=== PATIENT | female | born 1940 | race Caucasian/White ===

== ENCOUNTER 2017-03-14 18:08 | Inpatient (IN) ==
[2017-03-14] MEDS ORDERED: SODIUM CHLORIDE 0.9% 500 ML IV STA (18:55)
--- NOTE | 2017-03-14 19:28 | XRay Report ---
XR chest 1V portable Indication: Altered mental status. Comparison: Chest x-ray 12/16/2015. Technique: Portable AP chest was performed. Findings: Heart size is normal. Pulmonary vasculature appears within normal limits. No significant abnormality of the mediastinal contours demonstrated. Multiple punctate calcifications compatible with granuloma are noted within the mid and lower right lung and mid left lung. These appear stable in size and number. Lungs are otherwise clear. Bones and soft tissues demonstrate no significant abnormalities. Impression: 1. No evidence of acute pathology. 03/14/2017 7:22 PM PROCEDURE INTERPRETED AT [facility] DEPARTMENT OF RADIOLOGY Final Report Signed by: Dr. Cedric Horton
[2017-03-14 19:36] LABS: Basophils % 0.5 % (0.0-0.8); Hematocrit 36.6 VOL% (35.7-47.0); Hemoglobin 12.2 GM/DL (12.0-16.0); Immature Granulocytes % 0.5 %; Immature Granulocytes Absolute 0.03 #; Lymphocytes # 1.5 10*3/uL (1.4-4.0); Lymphocytes % 25.7 % (21.3-54.2); Mean Corpuscular HGB Conc 33.3 GM/DL (32-36); Mean Corpuscular Hemoglobin 28 PG (27-34); Mean Corpuscular Volume 83.9 FL (87-102); Mean Platelet Volume 10.8 FL (9.6-12.0); Monocytes # 0.3 10*3/uL (0.11-0.8); Monocytes % 5.5 % (1.7-12.7); Neutrophils % 67.8 % (38.7-73.9); Platelet Count 231 T/CUMM (130-400); Red Blood Count 4.36 MC/CUMM (3.8-5.5); Red Cell Distribution Width 15.6 % (9.3-17.3)
[2017-03-14 19:54] LABS: PT Patient Result 10.7 SECS
[2017-03-14 20:06] LABS: Alanine Aminotransferase 39 U/L (13-56); Alkaline Phosphatase 64 U/L (45-117); Aspartate Amino Transferase 76 U/L (0-37); Bilirubin,Total < 0.39 MG/DL (0.2-1.0); Blood Urea Nitrogen 20 MG/DL (7-18); Calcium 10.6 MG/DL (8.5-10.1); Glucose 94 MG/DL (74-106); Magnesium 1.5 MG/DL (1.8-2.4); Osmolality,Calculated 264.7 MOS/KG (273-304); Potassium 4.2 MMOL/L (3.5-5.1); Sodium 131 MMOL/L (136-145); Troponin I Only 0.016 NG/ML (0.00-0.045)
[2017-03-14] MEDS ORDERED: MAGNESIUM SULF RIDER 2 GM in PREMIX 1 EACH IV STA (20:37)
--- NOTE | 2017-03-14 20:38 | Emergency Department Note ---
Kristel Bentley Rolonda, am scribing for, and in the presence of, Derek Davis MD 18:55. Ryan Bentley Charles R, MD, personally performed the services described in this documentation, ascribed by Aime Humphries in my presence, and it is both accurate and complete . Arrival - Arrival Chief Complaint: Weakness Stated Complaint: weak, not eating are drinking and mental ED Nursing Triage Note: family states that pt has been weaker every day. pt has increased confusion. Mode of Arrival: Wheelchair Limitations: Altered Mental Status Source: Family (daughters), Old Records Reviewed, RN Notes Reviewed - History of Present Illness HPI Narrative: Pt is a 76 y/o female who was brought to the ED for further evaluation of weakness with an onset of days. Pt has a PMHx of cardiovascular, psychological, and neurology problems. Family states that pt is getting weaker and weaker. They state that pt has dementia but it has progressively worsened over the past few days. Family states that pt is usual able to walk but not is immobile, has no appetite, and sleeps more than usual. They states that when pt was mobile, she would fall 2-3x times a week and that she was Dx with a stress fracture last week. Pt is f/u by Dr. Robertson. No other complaint/pain in ED. Onset (ago): day(s) Consistency: constant Severity: moderate, severe Severity scale (1-10): 6 Allergies/Adverse Reactions: Allergies Allergy/AdvReac Type Severity Reaction Status Date / Time levofloxacin Allergy Mild Unknown/Unable Verified 12/17/15 17:01 to obtain Home Medications: Home Medications Medication Instructions Recorded Confirmed Type Aspirin [Ecotrin] 325 mg PO QAM 06/03/15 03/14/17 History Clopidogrel [Plavix] 75 mg PO QAM 06/03/15 03/14/17 History Metoprolol Succinate 50 mg PO QAM 06/03/15 03/14/17 History amLODIPine [Norvasc] 2.5 mg PO QAM 06/03/15 03/14/17 History Colesevelam [Welchol] 625 mg PO QAM 07/04/15 03/14/17 History QUEtiapine [SEROquel] 50 mg PO BEDTIME #60 tablet 09/04/15 03/14/17 Rx Isosorbide Mononitrate [Imdur] 60 mg PO QAM 12/16/15 03/14/17 History Levothyroxine Tab [Synthroid Tab] 25 mcg PO QAM 12/16/15 03/14/17 History Lovastatin [Mevacor] 40 mg PO BID W/MEALS 12/16/15 03/14/17 History Magnesium Chloride [Slow Mag] 64 mg PO QAM 12/16/15 03/14/17 History Pioglitazone HCl [Actos] 30 mg PO QAM 12/16/15 03/14/17 History Potassium Chloride Cap/Tab [K Dur] 10 meq PO QAM 12/16/15 03/14/17 History Valsartan/Hydrochlorothiazide 1 each PO QAM 12/16/15 03/14/17 History [Diovan Hct 320-12.5 mg Tab] Cholecalciferol [Vitamin D3] 1,000 unit PO BID 12/17/15 03/14/17 History Esomeprazole Magnesium [Nexium] 40 mg PO QAM 12/17/15 03/14/17 History Gabapentin 300 mg PO BEDTIME 12/17/15 03/14/17 History Memantine [Namenda] 5 mg PO BID 12/17/15 03/14/17 History Sertraline [Zoloft] 100 mg PO QAM 03/14/17 03/14/17 History hydroCHLOROthiazide 12.5 mg PO QAM 03/14/17 03/14/17 History [Hydrochlorothiazide] Review of System - Review of System 12 point system: reviewed and no additional remarkable complaints except as stated - Review of System Constitutional: Absent: chills, fever Eyes: Absent: discharge Head/Ears/Nose/Throat: Absent: earache Respiratory: Absent: cough Cardiovascular: Absent: chest pain Gastrointestinal: Absent: nausea Genitourinary female: Absent: dysuria Musculoskeletal: Absent: arm pain, back pain Skin: Absent: rash Neurological: Present: weakness, confusion. Absent: headache Psychiatric: Absent: anxiety Endocrine: Absent: cold intolerance Hematological/Lymphatic: Absent: easy bleeding Allergic/Immunologic: Absent: facial swelling Medical,Surgical,& Family Hx - Medical History Cardio: History of: CAD (prior angioplasty of left circumflex, proximal and mid distal RCA stents), Hypertension, Cardiovascular Problems (stents) No history of: Aneurysm, Cardiac Dysrhythmia, Cerebrovascular Disease, Congenital Heart Disease, CHF, [place], Pacemaker, PVD, Valvular Heart Disease Psychological: History of: Behavior Problems (physical aggression aeb threws things or items), Depression, Violent Behavior (same as above), Psychiatric Problems (delusions aeb patient talking to her ) Neurology: History of: Dementia, Peripheral Neuropathy, Vertigo No history of: Brain Aneurysm, Cerebrovascular Accident, Cerebral Palsy, Migraine, Multiple Sclerosis, Parkinson's Disease, Seizures, Neurologocal Cancer HEENT: History of: Eye Problem (glasses) Endocrine: History of: Diabetes Mellitus (IDDM), Diabetes Mellitus (NIDDM), Dyslipidemia, Thyroid Disorder Rheumatology: History of;: Rheumatoid Arthritis (per daughter not diagnosed) Respiratory: History of: Bronchitis (//), Intubation (37 years ago), Pneumonia No history of: Asthma, COPD, Obstructive Sleep Apnea, Pulmonary Embolism, Pulmonary Hypertension, Lung Cancer, Respiratory Problems Genitourinary: History of: Problems (incontinence) Gastrointestinal: History of: GERD (esophages stretched 2 years ago twice in all ), GI Problems (dysphagia) No history of: Gastrointestinal Bleed, Hemorrhoids, Gastrointestinal Cancer Musculoskeletal: History of: Musculoskeletal Problems (arthritis) No history of: Amputation Hematology: No history of: Anemia, Blood Transfusion Reaction, Bleeding Problems, Clotting Problems, Sickle Cell Disease, Hematologic Cancer, Blood Disorders Other: History of: Cancer (skin cancers) No history of: Anesthesia Reactions, Miscellaneous Medical Problems - Surgical History Cardiac Surgeries: Sugical HX of: Cardiac Catheterization (stents x 3) Thoracic Surgeries: Patient denies;: Organ Transplant, Lobectomy Neurologic Surgeries: Patient denies: Brain Aneurysm, Neurologic Surgery HEENT Surgeries: Surgical HX of: Tonsilectomy & Adenoidectomy Patient denies: Eye Surgery Abdominal Surgeries: Surgical HX of: EGD Patient denies: Abdominal Surgery Reproductive Surgeries: Surgical HX of;: Gynecologic Surgery, Hysterectomy Patient denies;: Genitourinary Surgery Orthopedic Surgeries: Surgical HX of;: Orthopedic Surgery (left elbow surgery 37 years ago FX L HUMEROUS) - Family History Family History: Reports;: Family Cancer (mother-colon, father-unknown), Family Diabetes (FATHER, SIBLINGS), Family Heart Disease (FATHER, SIBLINGS), Family Hypertension Denies;: Family Stroke - Social History Smoking Status: Never smoker Frequency of Alcohol Use: None Type of Drug Use: None Exam Vital Signs: Vital Signs Temperature 98.4 F 03/14/17 18:23 Pulse Rate 84 03/14/17 19:00 Respiratory Rate 19 03/14/17 19:00 Blood Pressure 117/70 03/14/17 18:23 O2 Sat by Pulse Oximetry 93 L 03/14/17 18:14 - General General appearance: alert, in no apparent distress, other (confused) - Head Head exam: Present: atraumatic, normocephalic - Eye Eye exam: Present: PERRL, EOMI, nystagmus - ENT ENT exam: Present: mucous membranes moist. Absent: mucous membranes dry - Neck Neck exam: Present: full ROM. Absent: tenderness - Chest Chest inspection: Present: symmetric chest wall rise. Absent: tenderness - Respiratory Respiratory exam: Present: normal lung sounds bilaterally. Absent: wheezes - Cardiovascular Cardiovascular exam: Present: regular rate, normal rhythm, normal heart sounds. Absent: bradycardia - Abdominal Exam Abdominal exam: Present: soft, normal bowel sounds. Absent: tenderness - Extremities Exam Extremities exam: Absent: normal inspection (bilateral leg pain) - Back Exam Back exam: Present: full ROM. Absent: tenderness - Neurological Exam Neurological exam: Present: alert, CN II-XII intact. Absent: oriented X3 - Psychiatric Psychiatric exam: Present: normal affect, normal mood - Skin Skin exam: Present: warm, dry, intact, normal color. Absent: rash Course - Consultations Consultation #1: Hospitalist will admit patient Time: 22:26 Results - Labs CBC & BMP: 03/14/17 19:16 03/14/17 19:16 Lab Results: I have reviewed the patients labs Labs: Laboratory Tests 03/14/17 19:16 WBC 6.0 RBC 4.36 Hgb 12.2 Hct 36.6 MCV 83.9 L Plt Count 231 Laboratory Tests 03/14/17 03/14/17 19:16 19:16 Sodium 131 L Potassium 4.2 Chloride 93 L Carbon Dioxide 30 BUN 20 H Creatinine 1.20 H GFR Calculation 49 Glucose 94 Calculated Osmolality 264.7 L Calcium 10.6 H Magnesium 1.5 L AST 76 H Albumin 3.0 L Globulin 4.0 H Albumin/Globulin Ratio 0.7 L Prolactin 6.2 - Diagnostic Findings Procedure: Chest x-ray: report reviewed by me (1. No evidence of acute pathology.), CT: report reviewed by me (Head/Brain: 1. Stable appearence of the brain with multiple prior infarctions as detailed above. No acute intracranial process is suggested.) Disposition Clinical Impression: Dementia, Alzheimer's, with behavior disturbance, Dementia, UTI (urinary tract infection) Case discussed with: patient, patient's family Disposition: Still a Patient Condition: Stable Time of Disposition: 22:27 NIH Stroke Score - Stroke Score Initial Assessment Level of Consciousness: Alert Level of Consciousness Questions: Both Incorrect Level of Consciousness Commands: Both Incorrect Best Gaze: Normal Visual Telles: No Visual Loss Facial Palsy: Normal Motor - Right Arm: No Drift Motor - Left Arm: No Drift Motor - Right Leg: No Drift Motor - Left Leg: No Drift Limb Ataxia: Absent Sensory (Pin Prick): Normal Best Language: Mild to Moderate Aphasia Dysarthria: Mild to Moderate Extinction / Inattention (Neglect): No Neglect NIH Stroke Score: 6
[2017-03-14 20:52] LABS: Sedimentation Rate-Westergren 58 MM/HR (0-30)
--- NOTE | 2017-03-14 20:55 | CT Report ---
CT head/brain wo con Indication: Altered mental status. Comparison: CT head 11/03/2015 Technique: CT of the brain was performed without administration of intravenous contrast. The CT examination was performed using one or more of the following dose reduction techniques: Automatic exposure control, adjustment of the mA and kV according to patient size, use of acute or iterative reconstruction techniques. Findings: There is no evidence of acute intracranial mass, hemorrhage, or infarction. Generalized cerebral atrophy is present. Areas of decreased attenuation within the periventricular white matter and cerebral white matter are present which could be compatible with microvascular ischemia. Peripherally calcified meningioma along the anterior left aspect of the intercerebral falx is suggested and is stable. Low attenuation of subcortical white matter anterior left frontal lobe may reflect sequelae of previous infarction. This finding is stable. Similar features are noted contralaterally. Additional remote infarction involving cortex and white matter of the posterior right occipital lobe is stable. The basal cisterns are patent. Previous infarction of the right cerebellar hemisphere appears stable. Orbits and globes demonstrate no evidence of significant pathology. Minimal mucoperiosteal thickening of the right sphenoid sinus is demonstrated. No significant abnormality is demonstrated to involve the mastoid air cells. The calvarium and overlying soft tissues demonstrate no evidence of acute pathology. Impression: 1. Stable appearance of the brain with multiple prior infarctions as detailed above . No acute intracranial process is suggested. 2. Small probable peripherally calcified meningioma along the left margin of the anterior intracerebral falx is present as detailed. 03/14/2017 8:51 PM PROCEDURE INTERPRETED AT [facility] DEPARTMENT OF RADIOLOGY Final Report Signed by: Dr. Cedric Horton
[2017-03-14] MEDS ORDERED: MAGNESIUM SULF RIDER 50 ML IV ONE (21:33)
[2017-03-14 21:35] LABS: Apearance,Urine Clear (Clear); Bacteria,Urine Moderate /HPF (Few); Bilirubin,Urine Negative (Negative); Blood, Urine Trace mg/dL (Negative); Glucose,Urine (UA) Negative (Negative); Hyaline Casts,Urine 3 /LPF (0-3); Ketones,Urine 25 mg/dL (Negative); Mucus,Urine Occasional /LPF (Occasional); Nitrite,Urine Positive (Negative); Protein,Urine 30 MG/DL; RBC,Urine 2 /HPF (0-4); Squamous Epithelial Cell,Urine Occasional /HPF (0-10); Urine Color Yellow (Yellow); Urine Specific Gravity 1.025 (1.001-1.035); WBC,Urine 2 /HPF (0-6)
[2017-03-14 21:36] LABS: Urine Urobilinogen < 2.0 EU/DL (0.2-1.0)
[2017-03-14] MEDS ORDERED: cefTRIAXone 1,000 MG in SODIUM CHLORIDE 0.9% 100 ML IV STA (22:28)
[2017-03-14] MEDS ORDERED: cefTRIAXone 1,000 MG VIAL ONE (23:19)
[2017-03-14] MEDS ORDERED: SODIUM CHLORIDE 0.9% 0 ML IV ONE (23:20)
--- NOTE | 2017-03-15 00:04 | Hospitalist History & Physical ---
Assessment and Plan (1) UTI (urinary tract infection) Status: Acute Assessment and plan: Urinalysis indicative for UTI. Will continue Rocephin, IV hydration, follow cultures. No elevation of WBC. No hypotension at this time. Hopefully mental status will improve with adequate IV hydration and antibiotic therapy. Current Visit: Yes (2) Heart palpitations Status: Acute Assessment and plan: EKG with fequent PVC's. labs revealed hypomagnesemia. Will replace electrolytes and reassess in am. Continue cardiac monitoring. Current Visit: No (3) At risk for falls Status: Acute Assessment and plan: Initiate fall risk precautions, consult physical therapy. Current Visit: Yes (4) Hypertension Status: Chronic Assessment and plan: HTN controlled at this time. Will resume home antihypertensives and monitor vs q 4 hours. Monitor telemetry. Current Visit: No Qualifiers: Hypertension type: essential hypertension Qualified Code(s): I10 - Essential (primary) hypertension (5) Type 2 diabetes mellitus Status: Chronic Assessment and plan: Will initiate insulin sliding scale. Diabetic diet after swallow evaluation. Accu cks ACHS. Current Visit: No Qualifiers: Diabetes mellitus complication status: without complication Diabetes mellitus retirement insulin use: without assistant terminal manager use Qualified Code(s): E11.9 - Type 2 diabetes mellitus without complications (6) Acute on chronic alteration in mental status Status: Acute Assessment and plan: Patient with history of dementia. Increased confusion, lethargy, and weakness, decreased appetite. Most likely related to UTI. CT scan of brain revealing old Cerebral CVA. No acute pathology. Will consult PT, neuro cks q 4 hours . Consult Neurolology if no improvement after antibiotic therapy and IV hydration in two days. Will consult PT. Resume home medications for Dementia and mood disorders. Current Visit: Yes (7) DVT prophylaxis Status: Acute Assessment and plan: Lovenox 40mg subcutaneous. GI px Protonix. patient is on Nexuim at home. Current Visit: No (8) Dementia, Alzheimer's, with behavior disturbance Status: Acute Current Visit: Yes (9) Hypomagnesemia Status: Acute Assessment and plan: Magnesium low. Will replace and reassess in am. Current Visit: Yes (10) Hypothyroidism Status: Acute Assessment and plan: 1. May be contributing to weakness and confusion. Will assess TSH and Free T4. Continue Synthroid. Current Visit: Yes History of Present Illness Chief complaint: Altered mental status and weakness History of present illness: Ms. Espino is a 76 year old female with a past medical history significant for previous trauma when she was young requiring tracheostomy which has been removed and healed, dementia, diabetes, diverticulitis, CAD, hypertension, GERD , and urinary incontinence that presented to the ED with increasing weakness, dysarthria, and increased confusion. Her two daughters, Ioana and Lucy are the historians. They state over the last month she has started to decline and has had more difficulty transferring and has fallen several times. Severity moderate and have been consistent then over the last 3 days she has significantly gotten weaker to the point they can not walk and isthey are having difficulty transferring. She actually fell last week resulting in a stress fracture. There are no modifying factors. They state her appetite has rapidly declined and today she has only taken a sip of soday. Denies headache, fever, chills, cough, vomiting, emesis, or melena. She is incontinent and has had more frequent urination recently. ED work up revealed CT scan of the brain with no acute pathology. It is positive for previous cerebellar infarct. EKG reveals sinus rhythm with frequent PVCs, and a chest x-ray with no acute pathology urinalysis was positive for nitrates. Lab work revealed normocytic anemia, hyponatremia, hypochloremia, hypomagnesemia, elevated AST, mild elevation in BUN and creatinine is 1.2. The patient was given Rocephin in the ED for UTI. Hospitalists the patient is being admitted to hospitalist service and she will be admitted with cardiac monitoring. Home Medications Medication Instructions Recorded Confirmed Type Aspirin [Ecotrin] 325 mg PO QAM 06/03/15 03/14/17 History Clopidogrel [Plavix] 75 mg PO QAM 06/03/15 03/14/17 History Metoprolol Succinate 50 mg PO QAM 06/03/15 03/14/17 History amLODIPine [Norvasc] 2.5 mg PO QAM 06/03/15 03/14/17 History Colesevelam [Welchol] 625 mg PO QAM 07/04/15 03/14/17 History QUEtiapine [SEROquel] 50 mg PO BEDTIME #60 tablet 09/04/15 03/14/17 Rx Isosorbide Mononitrate [Imdur] 60 mg PO QAM 12/16/15 03/14/17 History Levothyroxine Tab [Synthroid Tab] 25 mcg PO QAM 12/16/15 03/14/17 History Lovastatin [Mevacor] 40 mg PO BID W/MEALS 12/16/15 03/14/17 History Magnesium Chloride [Slow Mag] 64 mg PO QAM 12/16/15 03/14/17 History Pioglitazone HCl [Actos] 30 mg PO QAM 12/16/15 03/14/17 History Potassium Chloride Cap/Tab [K Dur] 10 meq PO QAM 12/16/15 03/14/17 History Valsartan/Hydrochlorothiazide 1 each PO QAM 12/16/15 03/14/17 History [Diovan Hct 320-12.5 mg Tab] Cholecalciferol [Vitamin D3] 1,000 unit PO BID 12/17/15 03/14/17 History Esomeprazole Magnesium [Nexium] 40 mg PO QAM 12/17/15 03/14/17 History Gabapentin 300 mg PO BEDTIME 12/17/15 03/14/17 History Memantine [Namenda] 5 mg PO BID 12/17/15 03/14/17 History Sertraline [Zoloft] 100 mg PO QAM 03/14/17 03/14/17 History hydroCHLOROthiazide 12.5 mg PO QAM 03/14/17 03/14/17 History [Hydrochlorothiazide] Allergies Allergy/AdvReac Type Severity Reaction Status Date / Time levofloxacin Allergy Mild Unknown/Unable Verified 12/17/15 17:01 to obtain Medical,Surgical,& Family Hx - Medical History Cardio: History of: CAD (prior angioplasty of left circumflex, proximal and mid distal RCA stents), Hypertension, Cardiovascular Problems (stents) No history of: Aneurysm, Cardiac Dysrhythmia, Cerebrovascular Disease, Congenital Heart Disease, CHF, [place], Pacemaker, PVD, Valvular Heart Disease Psychological: History of: Behavior Problems (physical aggression aeb threws things or items), Depression, Violent Behavior (same as above), Psychiatric Problems (delusions aeb patient talking to her ) Neurology: History of: Dementia, Peripheral Neuropathy, Vertigo No history of: Brain Aneurysm, Cerebral Palsy, Migraine, Multiple Sclerosis, Parkinson's Disease, Seizures, Neurologocal Cancer HEENT: History of: Eye Problem (glasses) Endocrine: History of: Diabetes Mellitus (IDDM), Diabetes Mellitus (NIDDM), Dyslipidemia, Thyroid Disorder Rheumatology: History of;: Rheumatoid Arthritis (per daughter not diagnosed) Respiratory: History of: Bronchitis (//), Intubation (37 years ago), Pneumonia No history of: Asthma, COPD, Obstructive Sleep Apnea, Pulmonary Embolism, Pulmonary Hypertension, Lung Cancer, Respiratory Problems Genitourinary: History of: Problems (incontinence) Gastrointestinal: History of: GERD (esophages stretched 2 years ago twice in all ), GI Problems (dysphagia) No history of: Gastrointestinal Bleed, Hemorrhoids, Gastrointestinal Cancer Musculoskeletal: History of: Musculoskeletal Problems (arthritis) No history of: Amputation Hematology: No history of: Anemia, Blood Transfusion Reaction, Bleeding Problems, Clotting Problems, Sickle Cell Disease, Hematologic Cancer, Blood Disorders Other: History of: Cancer (skin cancers) No history of: Anesthesia Reactions, Miscellaneous Medical Problems - Surgical History Cardiac Surgeries: Sugical HX of: Cardiac Catheterization (stents x 3) Thoracic Surgeries: Patient denies;: Organ Transplant, Lobectomy Neurologic Surgeries: Patient denies: Brain Aneurysm, Neurologic Surgery HEENT Surgeries: Surgical HX of: Tonsilectomy & Adenoidectomy (previous trach due to trauma) Patient denies: Eye Surgery Abdominal Surgeries: Surgical HX of: EGD (Esophogeal dilations several time. ) Patient denies: Abdominal Surgery Reproductive Surgeries: Surgical HX of;: Gynecologic Surgery, Hysterectomy Patient denies;: Genitourinary Surgery Orthopedic Surgeries: Surgical HX of;: Orthopedic Surgery (left elbow surgery 37 years ago FX L HUMEROUS) Additional Surgical History: Historecotmy, skin cancer removal, left elbow surery and fx of l humerous over 30 years ago. - Family History Family History: Reports;: Family Cancer (mother-colon, father-unknown), Family Diabetes (FATHER, SIBLINGS), Family Heart Disease (FATHER, SIBLINGS), Family Hypertension Denies;: Family Stroke - Social History Smoking Status: Never smoker Have you smoked in the last 12 months: No Frequency of Alcohol Use: None Type of Drug Use: None Marital Status: ROS unobtainable: due to dementia Review of systems: Mental status comes and goes, not reliable. Daughters provided history. - Constitutional Constitutional: Present: anorexia, daytime sleepiness, fatigue, frequent falls, lethargy, weakness, weight loss. Absent: chills, fever(s) - EENT Eyes: Present: other (wears glasses). Absent: blurry vision, diplopia Ears: Present: as per HPI. Absent: ear discharge, ear pain, tinnitus Nose, mouth and throat: Absent: dysphagia, epistaxis, headache(s), hoarseness, neck pain, sinus pressure, sore throat, throat swelling, tongue swelling, vertigo - Cardiovascular Cardiovascular: Absent: chest pain at rest, chest pain with activity, claudication, diaphoresis, dyspnea, edema, radiating jaw, neck or arm pain, palpitations - Respiratory Respiratory: Absent: cough, dyspnea, hemoptysis, dyspnea on exertion - Gastrointestinal Gastrointestinal: Present: abdominal pain, fecal incontinence, heartburn. Absent: constipation, cramping, diarrhea, vomiting - Genitourinary Genitourinary: Present: dysuria, urinary frequency, urinary incontinence. Absent: abnormal vaginal bleeding, flank pain, hematuria, menorrhagia, vaginal discharge - Musculoskeletal Musculoskeletal: Present: muscle weakness - Neurological Neurological: Present: abnormal gait, behavioral changes, frequent falls, other (generalized weakness. ) - Psychiatric Psychiatric: Present: confusion, memory loss (hx of dementia), other - Endocrine Endocrine: Present: fatigue, polyuria, other Exam - Constitutional Vitals: Period Temp Pulse Resp BP Sys/Michaud Pulse Ox Last 24 Hr 98.4 F-98.4 F 82-84 18-19 117-117/70-70 93 General appearance: normal weight, no acute distress, over weight, morbidly obese - Head Head exam: Present: normal inspection, normocephalic, atraumatic - Eye Eye exam: Present: EOMI, other (glasses are on. ) - ENT ENT exam: Present: normal exam - Neck Neck exam: Present: normal inspection - Respiratory Respiratory exam: Present: clear to auscultation bilaterally - Cardiovascular Cardiovascular exam: Present: irregular rhythm Results - Labs CBC & BMP: 03/14/17 19:16 03/14/17 19:16 - EKG EKG shows: sinus rhythm - Diagnostic Findings Procedure: Chest x-ray: image reviewed by me, report reviewed by me, CT: image reviewed by me, report reviewed by me, X-ray: image reviewed by me, report reviewed by me
[2017-03-15] MEDS ORDERED: MORPHINE 2 MG/1 ML SYRINGE IV PRN (00:17)
[2017-03-15] MEDS ORDERED: cefTRIAXone 1,000 MG in SODIUM CHLORIDE 0.9% 100 ML IV SCH ×2 (00:17→22:00)
[2017-03-15] MEDS: SODIUM CHLORIDE 0.9% 1,000 ML IV SCH ×2 (00:50→14:27)
[2017-03-15] MEDS ORDERED: DEXTROSE 50% 25 GM/50 ML VIAL IV PRN (00:50)
[2017-03-15] MEDS ORDERED: GLUCAGON 1 MG VIAL IM PRN (00:50)
[2017-03-15] MEDS: ENOXAPARIN 40 MG/0.4 ML SYRINGE SUBCUT SCH (01:22)
[2017-03-15 01:58] LABS: Basophils % 0.6 % (0.0-0.8); Hematocrit 38.9 VOL% (35.7-47.0); Hemoglobin 12.6 GM/DL (12.0-16.0); Immature Granulocytes % 0.7 %; Immature Granulocytes Absolute 0.04 #; Lymphocytes # 1.5 10*3/uL (1.4-4.0); Lymphocytes % 28.2 % (21.3-54.2); Mean Corpuscular HGB Conc 32.4 GM/DL (32-36); Mean Corpuscular Hemoglobin 28 PG (27-34); Mean Corpuscular Volume 86.6 FL (87-102); Mean Platelet Volume 10.7 FL (9.6-12.0); Monocytes # 0.3 10*3/uL (0.11-0.8); Monocytes % 5.7 % (1.7-12.7); Neutrophils # 3.5 10*3/uL (1.4-7.4); Neutrophils % 64.8 % (38.7-73.9); Platelet Count 176 T/CUMM (130-400); Red Blood Count 4.49 MC/CUMM (3.8-5.5); Red Cell Distribution Width 16.1 % (9.3-17.3); White Blood Count 5.4 T/CUMM (4-12)
[2017-03-15 01:59] LABS: Alanine Aminotransferase 43 U/L (13-56); Alkaline Phosphatase 68 U/L (45-117); Aspartate Amino Transferase 81 U/L (0-37); Bilirubin,Total < 0.39 MG/DL (0.2-1.0); Blood Urea Nitrogen 20 MG/DL (7-18); Calcium 10.7 MG/DL (8.5-10.1); Cholesterol 161 MG/DL (50-200); Glucose 89 MG/DL (74-106); HDL Cholesterol 49 MG/DL (40-60); Magnesium 2.1 MG/DL (1.8-2.4); Osmolality,Calculated 265.5 MOS/KG (273-304); Potassium 4.8 MMOL/L (3.5-5.1); Risk Ratio 3.29; Sodium 132 MMOL/L (136-145); Triglycerides 130 MG/DL (2-150)
--- NOTE | 2017-03-15 03:40 | EKG Report ---
Stationary ECG Study [facility] ER Test Date: 03/14/2017 7:06:09 PM Pat Name: OSWALD VALENZUELA Department: Room: 531 Gender: F Certified Master Safe Technician: : 1940 Requested by: Derek Maxwell Order Number: [id number] Reading MD: WILLAM SAMANIEGO Intervals [place] Rate: 78 P: 30 AL: 186 QRS: 77 QRSD: 158 T: -9 QT: 437 QTc: 470 Interpretive Statements SINUS RHYTHM WITH OCCASIONAL VENTRICULAR PREMATURE COMPLEXES INTRAVENTRICULAR CONDUCTION DELAY Electronically Signed On 03-15-17 16:42:26 CDT by WILLAM SAMANIEOG [email or web address]
[2017-03-15] MEDS: ASPIRIN EC 325 MG TABLET PO SCH (08:57)
[2017-03-15] MEDS: LOVASTATIN 20 MG TABLET PO SCH ×2 (08:57→17:22)
[2017-03-15] MEDS: ISOSORBIDE MONONITRATE 60 MG TABLET PO SCH (08:57)
[2017-03-15] MEDS: amLODIPine 2.5 MG TABLET PO SCH (08:58)
[2017-03-15] MEDS: hydroCHLOROthiazide 12.5 MG CAPSULE PO SCH (08:58)
[2017-03-15] MEDS: VALSARTAN 160 MG TABLET PO SCH (08:58)
[2017-03-15] MEDS: METOPROLOL SUCCINATE XL 50 MG TABLET PO SCH (08:58)
[2017-03-15] MEDS: CLOPIDOGREL 75 MG TABLET PO SCH (08:58)
[2017-03-15] MEDS: SERTRALINE 100 MG TABLET PO SCH (08:58)
[2017-03-15] MEDS: CHOLECALCIFEROL 1,000 UNIT TABLET PO SCH ×2 (08:58→21:52)
[2017-03-15] MEDS: COLESEVELAM 625 MG TABLET PO SCH (08:58)
[2017-03-15] MEDS: MAGNESIUM CHLORIDE 64 MG TABLET PO SCH (08:58)
[2017-03-15] MEDS: INSULIN LISPRO 100 UNIT/ML SUBCUT SCH ×4 (08:59→21:53)
[2017-03-15] MEDS: LEVOTHYROXINE 25 MCG TABLET PO SCH (08:59)
[2017-03-15] MEDS: MEMANTINE 5 MG TABLET PO SCH ×2 (08:59→21:52)
[2017-03-15] MEDS: POTASSIUM CHLORIDE 10 MEQ TABLET PO SCH (08:59)
[2017-03-15] MEDS: PANTOPRAZOLE 40 MG TABLET PO SCH (08:59)
[2017-03-15] MEDS ORDERED: NON-FORMULARY MEDICATION (Esomeprazole Magnesium [Nexium] 40 MG) PO SCH (09:00)
[2017-03-15] MEDS ORDERED: PIOGLITAZONE 15 MG TABLET PO SCH (09:00)
--- NOTE | 2017-03-15 09:36 | XRay Report ---
Portable chest Date: 03/15/2017 Clinical history: Shortness of breath Comparison: 03/14/2017 Technique: Portable AP sitting chest Findings: Stable cardiomegaly with calcification in the aortic knob. Chronic scarring in the lungs with atelectasis remaining at the left lung base. Stable mediastinum and osseous structures. Postoperative findings in the left shoulder. Impression: No significant change in the appearance of the chest when compared to previous exam. PROCEDURE INTERPRETED AT [facility] DEPARTMENT OF RADIOLOGY Final Report Signed by: Dr. Lucy Patel
--- NOTE | 2017-03-15 09:55 | Ultrasound Report ---
Exam:US carotid duplex BI Date:03/15/2017 4:00 AM Indication: Confusion Technique: grayscale color flow analysis and spectral analysis imaging was performed with image stored and captured. Findings: Scattered atherosclerotic plaque is noted on grayscale images. Right Side Flow velocities centimeters per second Common carotid artery:82 Proximal ICA:152.8 Distal ICA:64.0 External carotid artery:141.5 Vertebral artery:46.8 ICA/CCA ratio:1.9 Measurements in millimeters Distal ICA:6.9 Left SIde Flow velocities centimeters per second Common carotid artery 79 Proximal ICA:73.5 Distal ICA:94.5 External carotid artery:171.1 Vertebral artery:37.0 ICA/CCA ratio:1.2 Measurements in millimeters Distal ICA:4.8 Impression: 1. Mild right ICA stenosis in the range of 16-49% by ultrasound criteria. 2. No significant stenosis within the left internal carotid artery. 3. Antegrade flow within both vertebral arteries. Today studies were performed utilizing indirect NASCET criteria PROCEDURE INTERPRETED AT [facility] DEPARTMENT OF RADIOLOGY Final Report Signed by: Jeremiah Richardson
[2017-03-15] MEDS: ZINC OXIDE PASTE 113 GM TUBE TOP SCH ×2 (14:27→21:51)
--- NOTE | 2017-03-15 15:03 | Hospitalist Progress Note ---
Hospitalist: Subjective Interval history: Patients' family is present at the bedside. They state that patient had been less interactive even more today. Daughter also states that patient has been dragging her right leg in the past few days. Patient is not answering any questioning. Family states that patient has dementia but she is usually interactive with them. Nursing staff notes hypoxia resolved with oxygen. Exam - Constitutional Vitals: Period Temp Pulse Resp BP Sys/Michaud Pulse Ox Last 24 Hr 97.8 F-100.7 F 62-96 16-22 117-159/64-73 90-98 General appearance: over weight - Eye Eye exam: Present: EOMI Pupils: Present: RUSTY - Respiratory Respiratory exam: Present: clear to auscultation bilaterally. Absent: rales, rhonchi, wheezes - Cardiovascular Cardiovascular exam: Present: regular rate and rhythm - GI/Abdominal GI/Abdominal exam: Present: normal bowel sounds, soft. Absent: guarding, tenderness - Extremities Exam Extremities exam: Absent: edema - Neurological Exam Neurological exam: Present: alert, altered (lethargic looking, confused) Results - Labs CBC & BMP: 03/15/17 00:56 03/15/17 00:56 - Impressions Acute encephalopathy: could be 2nd to UTI. Head CT unremarkable. Check NH3 2. GNR UTI: on rocephin; await final culture 3. HYpoxia: chest x-ray unremarkable; add nebs; chest CT with PE protocol 4. Hypomg: repleted; monitor 5. Deconditioning/weakness: PT/OT; obtain right hip film for evaluation for fracture 6. h/o HTN: bp controlled; continue current regimen 7. h/o CVA: on asa/plavix/statin Plan: as noted above
[2017-03-15] MEDS ORDERED: ALBUTEROL/IPRATROPIUM 3 ML NEB RESP TX PRN (15:06)
--- NOTE | 2017-03-15 15:58 | XRay Report ---
XR hip 2V RT Indication: Right hip pain status post fall. Comparison: None. Technique: AP view of the right hip in internal and external rotation. Findings: Suboptimal imaging of the right hip secondary to large [id number] with noncentered joint no displaced fractures of the hip or acetabulum are demonstrated. Calcifications are noted throughout the superficial femoral artery and common femoral artery. Das catheter is present. Impression: 1. Findings as detailed. 03/15/2017 3:55 PM PROCEDURE INTERPRETED AT [facility] DEPARTMENT OF RADIOLOGY Final Report Signed by: Dr. Cedric Horton
--- NOTE | 2017-03-15 16:03 | CT Report ---
CT chest PE study Indication: Hypoxia. Clinical concern for pulmonary embolus. Comparison: None. Technique: CT of the chest was performed following the administration of intravenous contrast. In addition to multiple contiguous axial source images obtained from the thoracic inlet through the upper abdomen, coronal and sagittal MPR series were performed as were thin slab MIP reconstructions in the coronal and sagittal plane. The CT examination was performed using one or more of the following dose reduction techniques: Automatic exposure control, adjustment of the mA and kV according to patient size, or iterative reconstruction techniques. Findings: Motion precludes complete evaluation of subsegmental pulmonary artery branches within the lower lobes. No central filling defects are noted. Left and right pulmonary artery. Upper limits of normal in size to minimally enlarged measuring 2.5 cm on the right and 2.5 cm on the left. This finding suggests pulmonary arterial hypertension. Dependent atelectatic changes within the lower lobes are moderate. The right upper lobe demonstrates dependent airspace attenuation with groundglass attenuation some thickening of intralobular septal lines. Differential considerations include infection as well as atelectasis and asymmetric edema. A few scattered granulomas are suggested bilaterally. The aorta demonstrates diffusely scattered intimal calcification. Coronary artery calcifications and/or stents are noted within the left and right coronary circulation. Borderline cardiomegaly is present. The esophagus demonstrates no significant abnormality. No adenopathy is noted within the axilla, satya, or mediastinum. Osseous structures demonstrate some degree of demineralization with possible partially imaged 2. Plate fracture of L1. Previous repair left humerus is demonstrated. Soft tissues and musculature of the chest wall demonstrate no acute findings. The spleen is not identified. Multiple small fragments of soft tissue attenuation present in the expected location of the spleen appear to have close approximation to splenic vessels. This may reflect small splenules are sequelae of previous shattered spleen. Imaged portion of the upper abdomen is otherwise unremarkable. Impression: 1. Incomplete evaluation of segmental and subsegmental pulmonary artery branches within the lower lobe secondary to motion. No central filling defect to suggest pulmonary artery and was demonstrated. 2. Dependently located within the right upper lobe there are areas of airspace attenuation with surrounding groundglass attenuation and thickened intralobular septal lines have differential considerations including asymmetric edema, infection, and atelectasis. 3. Coronary artery calcifications and/or stents are present. 4. Other findings as detailed. 03/15/2017 3:56 PM PROCEDURE INTERPRETED AT [facility] DEPARTMENT OF RADIOLOGY Final Report Signed by: Dr. Cedric Horton
--- NOTE | 2017-03-15 19:31 | ECHO Report ---
Kortney Espino Exam Date: 03/15/2017 07:45 Referring Physician: Technologist: Dee Kapadia LRMARYA Age: 76 Ht (in): 65 Wt (lb): 200 Gender: F Exam Location: [facility] Echo Indications: palp., HTN, UTI, DM, dementia, hypomagnesemla, hypothyroidism, ams BP: 154 / 68 HR: 96 Rhythm: Sinus Technical Quality: Technically difficult study IMPRESSIONS Technically difficult study Left ventricular ejection fraction is estimated at 35-40% with anteroseptal hypokinesis. Mild concentric left ventricular hypertrophy with moderate diastolic dysfunction. Mild left atrial enlargement. Mild aortic sclerosis without stenosis. Mildly thickened mitral valve with trace mitral regurgitation. Trace tricuspid valve regurgitation. MEASUREMENTS (Male / Female) Normal Values 2D ECHO LV Diastolic Diameter PLAX 4.6 cm 4.2 - 5.9 / 3.9 - 5.3 cm LV Systolic Diameter PLAX 3.7 cm LV Fractional Shortening PLAX 19.0 % IVS Diastolic Thickness 1.1 cm 0.6 - 1.0 / 0.6 - 0.9 cm LVPW Diastolic Thickness 1.2 cm 0.6 - 1.0 / 0.6 - 0.9 cm Aortic Root Diameter 2.3 cm LA Systolic Diameter LX 3.9 cm 3.0 - 4.0 / 2.7 - 3.8 cm DOPPLER TR Peak Velocity 258.0 cm/s TR Peak Gradient 26.6 mmHg FINDINGS Left Ventricle Normal left ventricular cavity size. Mild concentric left ventricular hypertrophy with moderate diastolic dysfunction. Left ventricular ejection fraction is estimated at 35-40% with anteroseptal hypokinesis. Right Ventricle Normal right ventricular size. Right Atrium Normal right atrial size. Left Atrium Mild left atrial enlargement. Mitral Valve Mildly thickened mitral valve with trace mitral regurgitation. Aortic Valve Mild aortic sclerosis without stenosis. Tricuspid Valve Morphologically normal tricuspid valve. Trace tricuspid valve regurgitation. Tricuspid regurgitation velocities suggest a PAP of 26.6 mmHg + RAP. Pulmonic Valve Morphologically normal pulmonic valve. Trace pulmonary valve regurgitation. Pericardium No pericardial effusion. Aorta Normal size aortic root and proximal ascending aorta. Hiram Ritchie (Electronically Signed) Final Date: 15 March 2017 19:21
[2017-03-15] MEDS: PIPERACILLIN/TAZOBACTAM 3,375 MG in SODIUM CHLORIDE 0.9% 100 ML IV SCH (21:51)
[2017-03-15] MEDS: GABAPENTIN 300 MG CAPSULE PO SCH (21:52)
[2017-03-15] MEDS: QUEtiapine 25 MG TABLET PO SCH (21:52)
[2017-03-16] MEDS: ENOXAPARIN 40 MG/0.4 ML SYRINGE SUBCUT SCH (02:02)
[2017-03-16] MEDS ORDERED: ACETAMINOPHEN 650 MG SUPP RECTAL ONE (05:16)
[2017-03-16] MEDS: ACETAMINOPHEN 650 MG SUPP RECTAL PRN (05:30)
[2017-03-16] MEDS: PIPERACILLIN/TAZOBACTAM 3,375 MG in SODIUM CHLORIDE 0.9% 100 ML IV SCH ×3 (05:40→22:21)
[2017-03-16 07:01] LABS: Basophils % 0.5 % (0.0-0.8); Hemoglobin 11.3 GM/DL (12.0-16.0); Immature Granulocytes % 0.5 %; Immature Granulocytes Absolute 0.03 #; Lymphocytes # 1.5 10*3/uL (1.4-4.0); Lymphocytes % 26.3 % (21.3-54.2); Mean Corpuscular HGB Conc 34.2 GM/DL (32-36); Mean Corpuscular Hemoglobin 28 PG (27-34); Mean Corpuscular Volume 82.7 FL (87-102); Mean Platelet Volume 11.7 FL (9.6-12.0); Monocytes # 0.3 10*3/uL (0.11-0.8); Monocytes % 5.6 % (1.7-12.7); Neutrophils # 3.7 10*3/uL (1.4-7.4); Neutrophils % 67.1 % (38.7-73.9); Platelet Count 206 T/CUMM (130-400); Red Blood Count 3.99 MC/CUMM (3.8-5.5); Red Cell Distribution Width 15.5 % (9.3-17.3); White Blood Count 5.6 T/CUMM (4-12)
[2017-03-16] MEDS: SODIUM CHLORIDE 0.9% 1,000 ML IV SCH ×2 (07:15→16:59)
[2017-03-16 07:34] LABS: Calcium 9.7 MG/DL (8.5-10.1); Magnesium 1.6 MG/DL (1.8-2.4); Osmolality,Calculated 261.7 MOS/KG (273-304)
[2017-03-16] MEDS: INSULIN LISPRO 100 UNIT/ML SUBCUT SCH ×4 (08:35→22:23)
[2017-03-16] MEDS: ZINC OXIDE PASTE 113 GM TUBE TOP SCH ×2 (10:00→22:21)
[2017-03-16] MEDS: POTASSIUM CHLORIDE 10 MEQ TABLET PO SCH (10:07)
[2017-03-16] MEDS: LOVASTATIN 20 MG TABLET PO SCH ×2 (10:07→16:57)
[2017-03-16] MEDS: hydroCHLOROthiazide 12.5 MG CAPSULE PO SCH (10:07)
[2017-03-16] MEDS: ASPIRIN EC 325 MG TABLET PO SCH (10:07)
[2017-03-16] MEDS: CLOPIDOGREL 75 MG TABLET PO SCH (10:07)
[2017-03-16] MEDS: SERTRALINE 100 MG TABLET PO SCH (10:08)
[2017-03-16] MEDS: VALSARTAN 160 MG TABLET PO SCH (10:08)
[2017-03-16] MEDS: LEVOTHYROXINE 25 MCG TABLET PO SCH (10:08)
[2017-03-16] MEDS: CHOLECALCIFEROL 1,000 UNIT TABLET PO SCH ×2 (10:08→22:22)
[2017-03-16] MEDS: MAGNESIUM CHLORIDE 64 MG TABLET PO SCH (10:08)
[2017-03-16] MEDS: COLESEVELAM 625 MG TABLET PO SCH (10:08)
[2017-03-16] MEDS: amLODIPine 2.5 MG TABLET PO SCH (10:08)
[2017-03-16] MEDS: PANTOPRAZOLE 40 MG TABLET PO SCH (10:09)
[2017-03-16] MEDS: METOPROLOL SUCCINATE XL 50 MG TABLET PO SCH (10:09)
[2017-03-16] MEDS: MEMANTINE 5 MG TABLET PO SCH ×2 (10:09→22:22)
[2017-03-16] MEDS: ISOSORBIDE MONONITRATE 60 MG TABLET PO SCH (10:09)
--- NOTE | 2017-03-16 15:50 | Hospitalist Progress Note ---
Hospitalist: Subjective Interval history: 76-year-old white female with history of Alzheimer's dementia who was admitted with confusion and metabolic encephalopathy due to UTI. She is a little less confused today. Exam - Constitutional Vitals: Period Temp Pulse Resp BP Sys/Michaud Pulse Ox Last 24 Hr 98.3 F-102.5 F 72-91 18-20 104-176/53-79 91-96 Exam: General: [No Acute Distress] HEENT: [Normocephalic, atraumatic, Extra ocular movements intact] Neck: [Supple, No JVD] Chest: [Clear to auscultation B/L] CV: [S1 + S2 audible without murmur, gallop or rub] Abd: [soft, NT, Non-distended, BS +] Ext: [Trace edema] Skin: [No purpura, bruising or rash] Rheumatologic: [No Joint deformities] Neurologic: [Awake and alert] Results - Labs CBC & BMP: 03/16/17 05:48 03/16/17 05:48 - Impressions Assessment and Plan: E. coli UTI, POA Status: Acute Assessment and plan: Pansensitive UTI continue antibiotic. She is on IV Zosyn Current Visit: Yes Metabolic encephalopathy due to UTI Status: Acute Assessment and plan: Mental status is slowly returning to baseline Current Visit: Yes Dementia, Alzheimer's Status: Chronic current Visit: Yes On Seroquel and Namenda Essential hypertension Status: Chronic current Visit: Yes Patient was living at home with one of her daughters DVT prophylaxis with Lovenox
[2017-03-16] MEDS: GABAPENTIN 300 MG CAPSULE PO SCH (22:22)
[2017-03-16] MEDS: QUEtiapine 25 MG TABLET PO SCH (22:24)
[2017-03-17] MEDS: ACETAMINOPHEN 650 MG SUPP RECTAL PRN (00:05)
[2017-03-17] MEDS: ENOXAPARIN 40 MG/0.4 ML SYRINGE SUBCUT SCH (00:06)
[2017-03-17] MEDS: PIPERACILLIN/TAZOBACTAM 3,375 MG in SODIUM CHLORIDE 0.9% 100 ML IV SCH ×3 (07:00→20:39)
[2017-03-17] MEDS: SODIUM CHLORIDE 0.9% 1,000 ML IV SCH ×3 (07:11→18:45)
[2017-03-17] MEDS: INSULIN LISPRO 100 UNIT/ML SUBCUT SCH ×4 (08:12→23:13)
[2017-03-17] MEDS: LOVASTATIN 20 MG TABLET PO SCH ×2 (08:59→17:27)
[2017-03-17] MEDS: ISOSORBIDE MONONITRATE 60 MG TABLET PO SCH (08:59)
[2017-03-17] MEDS: MAGNESIUM CHLORIDE 64 MG TABLET PO SCH (08:59)
[2017-03-17] MEDS: hydroCHLOROthiazide 12.5 MG CAPSULE PO SCH (08:59)
[2017-03-17] MEDS: PANTOPRAZOLE 40 MG TABLET PO SCH (08:59)
[2017-03-17] MEDS: CHOLECALCIFEROL 1,000 UNIT TABLET PO SCH ×2 (08:59→20:37)
[2017-03-17] MEDS: COLESEVELAM 625 MG TABLET PO SCH (08:59)
[2017-03-17] MEDS: METOPROLOL SUCCINATE XL 50 MG TABLET PO SCH (08:59)
[2017-03-17] MEDS: LEVOTHYROXINE 25 MCG TABLET PO SCH (09:00)
[2017-03-17] MEDS: SERTRALINE 100 MG TABLET PO SCH (09:00)
[2017-03-17] MEDS: POTASSIUM CHLORIDE 10 MEQ TABLET PO SCH (09:00)
[2017-03-17] MEDS: MEMANTINE 5 MG TABLET PO SCH ×2 (09:00→20:38)
[2017-03-17] MEDS: ASPIRIN EC 325 MG TABLET PO SCH (09:00)
[2017-03-17] MEDS: VALSARTAN 160 MG TABLET PO SCH (09:00)
[2017-03-17] MEDS: CLOPIDOGREL 75 MG TABLET PO SCH (09:00)
[2017-03-17] MEDS: amLODIPine 2.5 MG TABLET PO SCH (09:00)
[2017-03-17] MEDS: ZINC OXIDE PASTE 113 GM TUBE TOP SCH ×2 (11:52→21:00)
[2017-03-17] MEDS: NYSTATIN 500,000 UNIT/5 ML UDCUP SWISH/SWAL SCH ×3 (14:08→20:38)
[2017-03-17 14:24] LABS: Apearance,Urine CLEAR (Clear); Bacteria,Urine Occasional /HPF (Few); Bilirubin,Urine Negative (Negative); Blood, Urine Negative (Negative); Glucose,Urine (UA) Negative (Negative); Ketones,Urine Negative (Negative); Mucus,Urine Occasional /LPF (Occasional); Nitrite,Urine Negative (Negative); Protein,Urine 30 MG/DL; RBC,Urine 1 /HPF (0-4); Urine Color Yellow (Yellow); Urine Specific Gravity 1.027 (1.001-1.035); Urine Urobilinogen < 2.0 EU/DL (0.2-1.0); WBC,Urine 1 /HPF (0-6)
--- NOTE | 2017-03-17 15:09 | XRay Report ---
XR chest 1V portable Indication: Fever. Chest one view: Comparison 03/15/2017. Hardware left humerus, mild cardiomegaly and normal mediastinal contour stable. Lungs are less well-inflated than 2 days ago, with progressive atelectasis but no new infiltrates. Impression: Pulmonary hypoinflation with atelectasis. Otherwise no change. PROCEDURE INTERPRETED AT [facility] DEPARTMENT OF RADIOLOGY Final Report Signed by: Janak Fields M.D.
--- NOTE | 2017-03-17 15:29 | Hospitalist Progress Note ---
Hospitalist: Subjective Interval history: 76-year-old white female with history of Alzheimer's dementia who was admitted with confusion and metabolic encephalopathy due to UTI. She is a little less confused today. Exam - Constitutional Vitals: Period Temp Pulse Resp BP Sys/Michaud Pulse Ox Last 24 Hr 98.3 F-101.5 F 73-82 18-20 119-156/52-71 92-95 Exam: General: [No Acute Distress] HEENT: [Normocephalic, atraumatic, Extra ocular movements intact] Neck: [Supple, No JVD] Chest: [Clear to auscultation B/L] CV: [S1 + S2 audible without murmur, gallop or rub] Abd: [soft, NT, Non-distended, BS +] Ext: [Trace edema] Skin: [No purpura, bruising or rash] Rheumatologic: [No Joint deformities] Neurologic: [Awake and alert] Results - Labs CBC & BMP: 03/16/17 05:48 03/16/17 05:48 - Impressions Assessment and Plan: E. coli UTI, POA Status: Acute Assessment and plan: Pansensitive UTI continue antibiotic. She is on IV Zosyn. Did spike fever the night of 03/16. No pneumonia on chest x-ray 03/17. Follow-up repeat blood and urine cultures negative so far. Current Visit: Yes Metabolic encephalopathy due to UTI Status: Acute Assessment and plan: Mental status is slowly returning to baseline Current Visit: Yes Dementia, Alzheimer's Status: Chronic current Visit: Yes On Seroquel and Namenda Essential hypertension Status: Chronic current Visit: Yes Physical deconditioning, getting PT Patient was living at home with one of her daughters DVT prophylaxis with Lovenox
[2017-03-17] MEDS: QUEtiapine 25 MG TABLET PO SCH (20:38)
[2017-03-17] MEDS: GABAPENTIN 300 MG CAPSULE PO SCH (20:39)
[2017-03-17] MEDS: ACETAMINOPHEN 325 MG TABLET PO PRN (23:20)
[2017-03-18] MEDS: ENOXAPARIN 40 MG/0.4 ML SYRINGE SUBCUT SCH (01:23)
[2017-03-18] MEDS: PIPERACILLIN/TAZOBACTAM 3,375 MG in SODIUM CHLORIDE 0.9% 100 ML IV SCH (06:01)
[2017-03-18] MEDS: COLESEVELAM 625 MG TABLET PO SCH (09:46)
[2017-03-18] MEDS: VALSARTAN 160 MG TABLET PO SCH (09:46)
[2017-03-18] MEDS: hydroCHLOROthiazide 12.5 MG CAPSULE PO SCH (09:46)
[2017-03-18] MEDS: SERTRALINE 100 MG TABLET PO SCH (09:46)
[2017-03-18] MEDS: PANTOPRAZOLE 40 MG TABLET PO SCH (09:46)
[2017-03-18] MEDS: ISOSORBIDE MONONITRATE 60 MG TABLET PO SCH (09:46)
[2017-03-18] MEDS: CLOPIDOGREL 75 MG TABLET PO SCH (09:46)
[2017-03-18] MEDS: POTASSIUM CHLORIDE 10 MEQ TABLET PO SCH (09:47)
[2017-03-18] MEDS: LEVOTHYROXINE 25 MCG TABLET PO SCH (09:47)
[2017-03-18] MEDS: amLODIPine 2.5 MG TABLET PO SCH (09:47)
[2017-03-18] MEDS: MAGNESIUM CHLORIDE 64 MG TABLET PO SCH (09:47)
[2017-03-18] MEDS: METOPROLOL SUCCINATE XL 50 MG TABLET PO SCH (09:47)
[2017-03-18] MEDS: ASPIRIN EC 325 MG TABLET PO SCH (09:47)
[2017-03-18] MEDS: MEMANTINE 5 MG TABLET PO SCH ×3 (09:47→23:50)
[2017-03-18] MEDS: NYSTATIN 500,000 UNIT/5 ML UDCUP SWISH/SWAL SCH ×4 (09:48→21:08)
[2017-03-18] MEDS: LOVASTATIN 20 MG TABLET PO SCH ×2 (09:48→16:23)
[2017-03-18] MEDS: CHOLECALCIFEROL 1,000 UNIT TABLET PO SCH ×3 (09:48→23:50)
[2017-03-18] MEDS: SODIUM CHLORIDE 0.9% 1,000 ML IV SCH ×2 (09:48→22:43)
[2017-03-18] MEDS: ZINC OXIDE PASTE 113 GM TUBE TOP SCH ×2 (09:49→21:08)
[2017-03-18] MEDS: INSULIN LISPRO 100 UNIT/ML SUBCUT SCH ×4 (09:49→22:44)
--- NOTE | 2017-03-18 16:15 | Hospitalist Progress Note ---
Hospitalist: Subjective Interval history: 76-year-old white female with history of Alzheimer's dementia who was admitted with confusion and metabolic encephalopathy due to UTI. She she now appears at her baseline mental status. Exam - Constitutional Vitals: Period Temp Pulse Resp BP Sys/Michaud Pulse Ox Last 24 Hr 97.7 F-100.4 F 66-84 16-20 109-136/48-55 92-96 Exam: General: [No Acute Distress] HEENT: [Normocephalic, atraumatic, Extra ocular movements intact] Neck: [Supple, No JVD] Chest: [Clear to auscultation B/L] CV: [S1 + S2 audible without murmur, gallop or rub] Abd: [soft, NT, Non-distended, BS +] Ext: [Trace edema] Skin: [No purpura, bruising or rash] Rheumatologic: [No Joint deformities] Neurologic: [Awake and alert] Results - Labs CBC & BMP: 03/16/17 05:48 03/16/17 05:48 - Impressions Assessment and Plan: E. coli UTI, POA Status: Acute Assessment and plan: Pansensitive UTI continue antibiotic. She is on IV Zosyn. Did spike fever the night of 03/16. No pneumonia on chest x-ray 03/17. Follow-up repeat blood and urine cultures negative so far. Current Visit: Yes Metabolic encephalopathy due to UTI Status: Acute Assessment and plan: This has resolved after the treatment of the UTI Current Visit: Yes Dementia, Alzheimer's Status: Chronic current Visit: Yes On Seroquel and Namenda Essential hypertension Status: Chronic current Visit: Yes Physical deconditioning, getting PT Patient was living at home with one of her daughters DVT prophylaxis with Lovenox
[2017-03-18] MEDS: GABAPENTIN 300 MG CAPSULE PO SCH ×2 (21:07→23:50)
[2017-03-18] MEDS: CEFUROXIME 500 MG TABLET PO SCH ×2 (21:08→23:50)
[2017-03-18] MEDS: QUEtiapine 25 MG TABLET PO SCH ×2 (21:08→23:50)
[2017-03-19] MEDS: ENOXAPARIN 40 MG/0.4 ML SYRINGE SUBCUT SCH (00:34)
[2017-03-19] MEDS: NYSTATIN 500,000 UNIT/5 ML UDCUP SWISH/SWAL SCH ×5 (00:44→20:55)
[2017-03-19] MEDS: INSULIN LISPRO 100 UNIT/ML SUBCUT SCH ×4 (08:34→20:55)
[2017-03-19] MEDS: VALSARTAN 160 MG TABLET PO SCH (09:41)
[2017-03-19] MEDS: ISOSORBIDE MONONITRATE 60 MG TABLET PO SCH (09:41)
[2017-03-19] MEDS: MEMANTINE 5 MG TABLET PO SCH ×2 (09:41→20:55)
[2017-03-19] MEDS: MAGNESIUM CHLORIDE 64 MG TABLET PO SCH (09:41)
[2017-03-19] MEDS: COLESEVELAM 625 MG TABLET PO SCH (09:41)
[2017-03-19] MEDS: CEFUROXIME 500 MG TABLET PO SCH ×2 (09:42→20:55)
[2017-03-19] MEDS: METOPROLOL SUCCINATE XL 50 MG TABLET PO SCH (09:42)
[2017-03-19] MEDS: LEVOTHYROXINE 25 MCG TABLET PO SCH (09:42)
[2017-03-19] MEDS: ASPIRIN EC 325 MG TABLET PO SCH (09:42)
[2017-03-19] MEDS: CLOPIDOGREL 75 MG TABLET PO SCH (09:43)
[2017-03-19] MEDS: PANTOPRAZOLE 40 MG TABLET PO SCH (09:43)
[2017-03-19] MEDS: POTASSIUM CHLORIDE 10 MEQ TABLET PO SCH (09:43)
[2017-03-19] MEDS: SERTRALINE 100 MG TABLET PO SCH (09:43)
[2017-03-19] MEDS: CHOLECALCIFEROL 1,000 UNIT TABLET PO SCH ×2 (09:43→20:55)
[2017-03-19] MEDS: hydroCHLOROthiazide 12.5 MG CAPSULE PO SCH (09:43)
[2017-03-19] MEDS: ZINC OXIDE PASTE 113 GM TUBE TOP SCH ×2 (09:44→21:28)
[2017-03-19] MEDS: LOVASTATIN 20 MG TABLET PO SCH ×2 (09:44→17:24)
[2017-03-19] MEDS: amLODIPine 2.5 MG TABLET PO SCH (09:44)
[2017-03-19] MEDS: ACETAMINOPHEN 325 MG TABLET PO PRN (13:27)
[2017-03-19] MEDS: SODIUM CHLORIDE 0.9% 1,000 ML IV SCH (13:27)
--- NOTE | 2017-03-19 16:24 | Hospitalist Progress Note ---
Hospitalist: Subjective Interval history: 76-year-old female with UTI. Mental status is is better now. Exam - Constitutional Vitals: Period Temp Pulse Resp BP Sys/Michaud Pulse Ox Last 24 Hr 97.3 F-98.9 F 72-79 16-20 132-143/48-80 90-93 Exam: General: [No Acute Distress] HEENT: [Normocephalic, atraumatic, Extra ocular movements intact] Neck: [Supple, No JVD] Chest: [Clear to auscultation B/L] CV: [S1 + S2 audible without murmur, gallop or rub] Abd: [soft, NT, Non-distended, BS +] Ext: [Trace edema] Skin: [No purpura, bruising or rash] Rheumatologic: [No Joint deformities] Neurologic: [Awake and alert] Results - Labs CBC & BMP: 03/16/17 05:48 03/16/17 05:48 - Impressions Assessment and Plan: E. coli UTI, POA Status: Acute Assessment and plan: Pansensitive UTI continue antibiotic. She is on IV Zosyn. Did spike fever the night of 03/16. No pneumonia on chest x-ray 03/17. Follow-up repeat blood and urine cultures negative so far. Current Visit: Yes Metabolic encephalopathy due to UTI Status: Acute Assessment and plan: This has resolved after the treatment of the UTI Current Visit: Yes Dementia, Alzheimer's Status: Chronic current Visit: Yes On Seroquel and Namenda Essential hypertension Status: Chronic current Visit: Yes Physical deconditioning, getting PT Patient was living at home with one of her daughters. Family is now requesting swing bed placement. Social work is on the case. DVT prophylaxis with Lovenox
[2017-03-19] MEDS: QUEtiapine 25 MG TABLET PO SCH (20:55)
[2017-03-19] MEDS: GABAPENTIN 300 MG CAPSULE PO SCH (20:55)
[2017-03-20] MEDS: ENOXAPARIN 40 MG/0.4 ML SYRINGE SUBCUT SCH (01:43)
[2017-03-20] MEDS: SODIUM CHLORIDE 0.9% 1,000 ML IV SCH (04:39)
[2017-03-20] MEDS: amLODIPine 2.5 MG TABLET PO SCH (09:23)
[2017-03-20] MEDS: LOVASTATIN 20 MG TABLET PO SCH ×2 (09:23→17:17)
[2017-03-20] MEDS: SERTRALINE 100 MG TABLET PO SCH (09:23)
[2017-03-20] MEDS: CLOPIDOGREL 75 MG TABLET PO SCH (09:23)
[2017-03-20] MEDS: hydroCHLOROthiazide 12.5 MG CAPSULE PO SCH (09:23)
[2017-03-20] MEDS: POTASSIUM CHLORIDE 10 MEQ TABLET PO SCH (09:23)
[2017-03-20] MEDS: CEFUROXIME 500 MG TABLET PO SCH ×2 (09:23→21:31)
[2017-03-20] MEDS: PANTOPRAZOLE 40 MG TABLET PO SCH (09:23)
[2017-03-20] MEDS: LEVOTHYROXINE 25 MCG TABLET PO SCH (09:23)
[2017-03-20] MEDS: MEMANTINE 5 MG TABLET PO SCH ×2 (09:23→21:31)
[2017-03-20] MEDS: CHOLECALCIFEROL 1,000 UNIT TABLET PO SCH ×2 (09:24→21:31)
[2017-03-20] MEDS: INSULIN LISPRO 100 UNIT/ML SUBCUT SCH ×4 (09:24→21:32)
[2017-03-20] MEDS: COLESEVELAM 625 MG TABLET PO SCH (09:24)
[2017-03-20] MEDS: NYSTATIN 500,000 UNIT/5 ML UDCUP SWISH/SWAL SCH ×4 (09:24→21:31)
[2017-03-20] MEDS: VALSARTAN 160 MG TABLET PO SCH (09:24)
[2017-03-20] MEDS: ISOSORBIDE MONONITRATE 60 MG TABLET PO SCH (09:24)
[2017-03-20] MEDS: MAGNESIUM CHLORIDE 64 MG TABLET PO SCH (09:24)
[2017-03-20] MEDS: ZINC OXIDE PASTE 113 GM TUBE TOP SCH ×2 (09:24→21:32)
[2017-03-20] MEDS: METOPROLOL SUCCINATE XL 50 MG TABLET PO SCH (09:24)
[2017-03-20] MEDS: ASPIRIN EC 325 MG TABLET PO SCH (09:24)
[2017-03-20] MEDS: ALBUTEROL/IPRATROPIUM 3 ML NEB RESP TX SCH ×2 (14:16→19:20)
--- NOTE | 2017-03-20 16:32 | Hospitalist Progress Note ---
Hospitalist: Subjective Interval history: 76-year-old female with UTI. Mental status is is better now. Exam - Constitutional Vitals: Period Temp Pulse Resp BP Sys/Michaud Pulse Ox Last 24 Hr 96.9 F-98.0 F 70-82 16-19 120-153/55-75 90-98 Exam: General: [No Acute Distress] HEENT: [Normocephalic, atraumatic, Extra ocular movements intact] Neck: [Supple, No JVD] Chest: [Clear to auscultation B/L] CV: [S1 + S2 audible without murmur, gallop or rub] Abd: [soft, NT, Non-distended, BS +] Ext: [Trace edema] Skin: [No purpura, bruising or rash] Rheumatologic: [No Joint deformities] Neurologic: [Awake and alert] Results - Labs CBC & BMP: 03/16/17 05:48 03/16/17 05:48 - Impressions Assessment and Plan: E. coli UTI, POA Status: Acute Assessment and plan: Pansensitive UTI continue antibiotic. She is on IV Zosyn. Did spike fever the night of 03/16. No pneumonia on chest x-ray 03/17. Follow-up repeat blood and urine cultures negative so far. Current Visit: Yes Metabolic encephalopathy due to UTI Status: Acute Assessment and plan: This has resolved after the treatment of the UTI Current Visit: Yes Dementia, Alzheimer's Status: Chronic current Visit: Yes On Seroquel and Namenda Essential hypertension Status: Chronic current Visit: Yes Acute hypoxemic respiratory failure due to atelectasis due to bedbound status, PT has been ordered. continue duo nebs and chest physiotherapy to try to wean off oxygen. Physical deconditioning, getting PT Patient was living at home with one of her daughters. Family is now requesting swing bed placement. Social work is on the case. DVT prophylaxis with Lovenox
[2017-03-20] MEDS: QUEtiapine 25 MG TABLET PO SCH (21:31)
[2017-03-20] MEDS: GABAPENTIN 300 MG CAPSULE PO SCH (21:32)
[2017-03-21] MEDS: ENOXAPARIN 40 MG/0.4 ML SYRINGE SUBCUT SCH (00:17)
[2017-03-21] MEDS: ALBUTEROL/IPRATROPIUM 3 ML NEB RESP TX SCH ×7 (00:54→23:30)
[2017-03-21] MEDS: SODIUM CHLORIDE 0.9% 1,000 ML IV SCH ×3 (07:26→17:44)
[2017-03-21] MEDS: INSULIN LISPRO 100 UNIT/ML SUBCUT SCH ×3 (08:59→17:45)
[2017-03-21] MEDS: CEFUROXIME 500 MG TABLET PO SCH ×2 (09:22→22:46)
[2017-03-21] MEDS: LOVASTATIN 20 MG TABLET PO SCH ×2 (09:23→18:49)
[2017-03-21] MEDS: VALSARTAN 160 MG TABLET PO SCH (09:24)
[2017-03-21] MEDS: SERTRALINE 100 MG TABLET PO SCH (09:24)
[2017-03-21] MEDS: hydroCHLOROthiazide 12.5 MG CAPSULE PO SCH (09:24)
[2017-03-21] MEDS: LEVOTHYROXINE 25 MCG TABLET PO SCH (09:24)
[2017-03-21] MEDS: PANTOPRAZOLE 40 MG TABLET PO SCH (09:25)
[2017-03-21] MEDS: ZINC OXIDE PASTE 113 GM TUBE TOP SCH ×2 (09:25→22:50)
[2017-03-21] MEDS: CLOPIDOGREL 75 MG TABLET PO SCH (09:25)
[2017-03-21] MEDS: ASPIRIN EC 325 MG TABLET PO SCH (09:25)
[2017-03-21] MEDS: MEMANTINE 5 MG TABLET PO SCH ×2 (09:25→22:46)
[2017-03-21] MEDS: POTASSIUM CHLORIDE 10 MEQ TABLET PO SCH (09:25)
[2017-03-21] MEDS: CHOLECALCIFEROL 1,000 UNIT TABLET PO SCH ×2 (09:25→22:45)
[2017-03-21] MEDS: COLESEVELAM 625 MG TABLET PO SCH (09:25)
[2017-03-21] MEDS: ISOSORBIDE MONONITRATE 60 MG TABLET PO SCH (09:25)
[2017-03-21] MEDS: NYSTATIN 500,000 UNIT/5 ML UDCUP SWISH/SWAL SCH ×4 (09:25→22:50)
[2017-03-21] MEDS: METOPROLOL SUCCINATE XL 50 MG TABLET PO SCH (09:26)
[2017-03-21] MEDS: amLODIPine 2.5 MG TABLET PO SCH (09:26)
[2017-03-21] MEDS: MAGNESIUM CHLORIDE 64 MG TABLET PO SCH (09:26)
--- NOTE | 2017-03-21 15:22 | Case Mgmt Physician Query Form ---
TB Signs and Symptoms Screening ([place]) INSTRUCTIONS: To be completed annually on residents/staff with a significant Tuberculin Skin Test (TST) upon admission/hire or a prior significant TST. To be completed on all staff at hire. Please respond to each listed symptom with an (X) in either the "YES" or "NO" box. Do you currently have any of the following symptoms: YES NO ( ) ( x) A cough If yes, is it: ( ) Productive ( ) Non- productive ( ) ( x) Hemoptysis (spitting up blood) ( ) ( x) Chest pains ( ) ( x) Weight Loss ( ) ( x) Fever ( ) ( x) Night Sweats ( ) ( x) Weakness ( ) ( x) Loss of Appetite ( ) ( x) Difficulty Breathing If you answered YES" to any of the above questions, how long have symptoms been present? Comments: If you have any questions, please contact me. Thank you, Elin IBANEZ P: [phone] F: [phone] E: [email or web address] JORGE ALBERTO
[2017-03-21] MEDS ORDERED: TUBERCULIN SKIN TEST 0.1 ML SYRINGE INTRADERM ONE (16:00)
--- NOTE | 2017-03-21 17:43 | Hospitalist Progress Note ---
Hospitalist: Subjective Interval history: Patient's confusion has not resolved was due to UTI. Patient continues to refuse physical therapy and as such she is not a candidate for swing bed. Per daughter's request was power of bankruptcy attorney, social work nurse is trying to get her to a long-term. Exam - Constitutional Vitals: Period Temp Pulse Resp BP Sys/Michaud Pulse Ox Last 24 Hr 97.1 F-98.5 F 64-82 12-22 120-144/45-65 93-99 Exam: General: [No Acute Distress] HEENT: [Normocephalic, atraumatic, Extra ocular movements intact] Neck: [Supple, No JVD] Chest: [Clear to auscultation B/L] CV: [S1 + S2 audible without murmur, gallop or rub] Abd: [soft, NT, Non-distended, BS +] Ext: [Trace edema] Skin: [No purpura, bruising or rash] Rheumatologic: [No Joint deformities] Neurologic: [Awake and alert] Results - Labs CBC & BMP: 03/16/17 05:48 03/16/17 05:48 - Impressions Assessment and Plan: E. coli UTI, POA Status: Acute Assessment and plan: Pansensitive UTI continue antibiotic. She is on IV Zosyn. Did spike fever the night of 03/16. No pneumonia on chest x-ray 03/17. Follow-up repeat blood and urine cultures negative so far. Current Visit: Yes Metabolic encephalopathy due to UTI Status: Acute Assessment and plan: This has resolved after the treatment of the UTI Current Visit: Yes Dementia, Alzheimer's Status: Chronic current Visit: Yes On Seroquel and Namenda Essential hypertension Status: Chronic current Visit: Yes
[2017-03-21] MEDS: QUEtiapine 25 MG TABLET PO SCH (22:45)
[2017-03-21] MEDS: GABAPENTIN 300 MG CAPSULE PO SCH (22:46)
[2017-03-22] MEDS: INSULIN LISPRO 100 UNIT/ML SUBCUT SCH ×5 (00:09→20:54)
[2017-03-22] MEDS: ENOXAPARIN 40 MG/0.4 ML SYRINGE SUBCUT SCH (00:44)
[2017-03-22] MEDS: ALBUTEROL/IPRATROPIUM 3 ML NEB RESP TX SCH ×6 (03:00→23:03)
[2017-03-22] MEDS: LOVASTATIN 20 MG TABLET PO SCH ×2 (09:33→17:12)
[2017-03-22] MEDS: hydroCHLOROthiazide 12.5 MG CAPSULE PO SCH (09:34)
[2017-03-22] MEDS: ASPIRIN EC 325 MG TABLET PO SCH (09:34)
[2017-03-22] MEDS: MAGNESIUM CHLORIDE 64 MG TABLET PO SCH (09:34)
[2017-03-22] MEDS: CHOLECALCIFEROL 1,000 UNIT TABLET PO SCH ×2 (09:34→20:57)
[2017-03-22] MEDS: VALSARTAN 160 MG TABLET PO SCH (09:34)
[2017-03-22] MEDS: NYSTATIN 500,000 UNIT/5 ML UDCUP SWISH/SWAL SCH ×4 (09:34→20:54)
[2017-03-22] MEDS: COLESEVELAM 625 MG TABLET PO SCH (09:35)
[2017-03-22] MEDS: SERTRALINE 100 MG TABLET PO SCH (09:35)
[2017-03-22] MEDS: PANTOPRAZOLE 40 MG TABLET PO SCH (09:35)
[2017-03-22] MEDS: CEFUROXIME 500 MG TABLET PO SCH ×2 (09:35→20:55)
[2017-03-22] MEDS: LEVOTHYROXINE 25 MCG TABLET PO SCH (09:35)
[2017-03-22] MEDS: ISOSORBIDE MONONITRATE 60 MG TABLET PO SCH (09:35)
[2017-03-22] MEDS: METOPROLOL SUCCINATE XL 50 MG TABLET PO SCH (09:36)
[2017-03-22] MEDS ORDERED: TUBERCULIN SKIN TEST 0.1 ML SYRINGE INTRADERM ONE (11:01)
[2017-03-22] MEDS: amLODIPine 2.5 MG TABLET PO SCH (11:35)
[2017-03-22] MEDS: CLOPIDOGREL 75 MG TABLET PO SCH (11:35)
[2017-03-22] MEDS: ZINC OXIDE PASTE 113 GM TUBE TOP SCH ×2 (11:36→21:02)
[2017-03-22] MEDS: MEMANTINE 5 MG TABLET PO SCH ×2 (11:36→20:55)
[2017-03-22] MEDS: POTASSIUM CHLORIDE 10 MEQ TABLET PO SCH (11:36)
[2017-03-22] MEDS: SODIUM CHLORIDE 0.9% 1,000 ML IV SCH ×2 (13:16→21:03)
--- NOTE | 2017-03-22 17:38 | Event Note ---
Patient was admitted with UTI and metabolic encephalopathy, both of which have resolved. She is currently stable and awaits fpc placement. hothouse worker is on the case.
[2017-03-22] MEDS: GABAPENTIN 300 MG CAPSULE PO SCH (20:56)
[2017-03-22] MEDS: QUEtiapine 25 MG TABLET PO SCH (20:56)
[2017-03-23] MEDS: ENOXAPARIN 40 MG/0.4 ML SYRINGE SUBCUT SCH (01:04)
[2017-03-23] MEDS: ALBUTEROL/IPRATROPIUM 3 ML NEB RESP TX SCH ×6 (03:10→23:21)
[2017-03-23] MEDS: INSULIN LISPRO 100 UNIT/ML SUBCUT SCH ×4 (07:49→20:32)
[2017-03-23] MEDS: CLOPIDOGREL 75 MG TABLET PO SCH (09:21)
[2017-03-23] MEDS: LEVOTHYROXINE 25 MCG TABLET PO SCH (09:21)
[2017-03-23] MEDS: CEFUROXIME 500 MG TABLET PO SCH ×2 (09:21→20:30)
[2017-03-23] MEDS: COLESEVELAM 625 MG TABLET PO SCH (09:21)
[2017-03-23] MEDS: LOVASTATIN 20 MG TABLET PO SCH ×2 (09:21→17:23)
[2017-03-23] MEDS: ISOSORBIDE MONONITRATE 60 MG TABLET PO SCH (09:21)
[2017-03-23] MEDS: ASPIRIN EC 325 MG TABLET PO SCH (09:21)
[2017-03-23] MEDS: NYSTATIN 500,000 UNIT/5 ML UDCUP SWISH/SWAL SCH ×4 (09:21→20:29)
[2017-03-23] MEDS: MAGNESIUM CHLORIDE 64 MG TABLET PO SCH (09:21)
[2017-03-23] MEDS: METOPROLOL SUCCINATE XL 50 MG TABLET PO SCH (09:22)
[2017-03-23] MEDS: VALSARTAN 160 MG TABLET PO SCH (09:22)
[2017-03-23] MEDS: MEMANTINE 5 MG TABLET PO SCH ×2 (09:22→20:30)
[2017-03-23] MEDS: SERTRALINE 100 MG TABLET PO SCH (09:22)
[2017-03-23] MEDS: CHOLECALCIFEROL 1,000 UNIT TABLET PO SCH ×2 (09:22→20:29)
[2017-03-23] MEDS: hydroCHLOROthiazide 12.5 MG CAPSULE PO SCH (09:22)
[2017-03-23] MEDS: amLODIPine 2.5 MG TABLET PO SCH (09:22)
[2017-03-23] MEDS: PANTOPRAZOLE 40 MG TABLET PO SCH (09:22)
[2017-03-23] MEDS: POTASSIUM CHLORIDE 10 MEQ TABLET PO SCH (09:22)
[2017-03-23] MEDS: SODIUM CHLORIDE 0.9% 1,000 ML IV SCH (09:41)
[2017-03-23] MEDS: ZINC OXIDE PASTE 113 GM TUBE TOP SCH ×2 (09:42→20:31)
--- NOTE | 2017-03-23 16:49 | Event Note ---
Patient was admitted with UTI and metabolic encephalopathy, both of which have resolved. She is currently stable and awaits care home placement. rubber and plastics worker is on the case. Patient has repeatedly refused to participate in physical therapy and she is not a swing bed candidate.
--- NOTE | 2017-03-23 18:36 | Hospitalist Progress Note ---
Assessment and Plan - Time spent with patient Time spent with patient: Less than 30 minutes (1) UTI (urinary tract infection) Status: Acute Assessment and plan: Patient had a E. coli urinary tract infection which was pansensitive and is currently receiving antibiotic therapy. Note plans for possible discharge and transfer to [facility] in the a.m. Current Visit: Yes (2) Dementia Status: Chronic Assessment and plan: Patient has a history of dementia. Mental status as noted in physical exam. Continue current medical therapy at this time. Current Visit: Yes Qualifiers: Dementia type: unspecified type Dementia behavioral disturbance: with behavioral disturbance Qualified Code(s): F03.91 - Unspecified dementia with behavioral disturbance (3) Hypertension Status: Chronic Assessment and plan: Currently hemodynamically stable and well controlled. Continue current medical regimen. Current Visit: No Qualifiers: Hypertension type: essential hypertension Qualified Code(s): I10 - Essential (primary) hypertension (4) Hypothyroidism Status: Chronic Assessment and plan: Continuing current dose of thyroid replacement. TSH was minimally elevated on admission. Current Visit: Yes (5) Type 2 diabetes mellitus Status: Chronic Assessment and plan: Continuing Accu-Cheks with sliding scale insulin. Current Visit: No Qualifiers: Diabetes mellitus complication status: without complication Diabetes mellitus firer boiler insulin use: without firer boiler use Qualified Code(s): E11.9 - Type 2 diabetes mellitus without complications Hospitalist: Subjective Interval history: Patient was seen and chart reviewed. Ms. Espino is a 76-year-old female who is been treated for urinary tract infection and mental status changes. She has a history of hypertension, dementia. She denies any pain, shortness of breath, nausea, vomiting. She is awake alert and tolerating her diet but intake is reportedly poor. She can tell me her date of correctly but cannot tell me the year, president, current location. Discussed with her daughter, Shantell. Exam - Constitutional Vitals: Period Temp Pulse Resp BP Sys/Michaud Pulse Ox Last 24 Hr 97.7 F-98.8 F 81-96 16-20 104-143/49-69 88-98 General appearance: no acute distress - Head Head exam: Present: normocephalic, atraumatic - Eye Eye exam: Present: EOMI Pupils: Present: RUSTY - ENT ENT exam: Present: normal oropharynx - Neck Neck exam: Absent: meningismus - Respiratory Respiratory exam: Present: other (Few inspiratory crackles in the bases bilaterally no wheeze or rhonchi) - Cardiovascular Cardiovascular exam: Present: regular rate and rhythm. Absent: tachycardia - GI/Abdominal GI/Abdominal exam: Present: normal bowel sounds, soft. Absent: tenderness - Extremities Exam Extremities exam: Absent: calf tenderness, edema - Neurological Exam Neurological exam: Present: alert, CN II-XII intact, other (She can correctly tell me her date of but does not know where she is, what year it is nor who the president is.) - Psychiatric Psychiatric exam: Absent: agitated, anxious - Skin Skin exam: Present: warm, dry. Absent: erythema Results - Labs CBC & BMP: 03/16/17 05:48 03/16/17 05:48 Lab Results: I have reviewed the past 24 hour labs
--- NOTE | 2017-03-23 19:19 | XRay Report ---
Exam: XR chest 1V portable Indication: Hypoxia Comparison study: Prior radiograph 03/17/2017 Findings: Cardiac silhouette is enlarged, similar to prior. There is been development of minimal patchy bilateral perihilar interstitial and airspace opacities, which may represent atelectasis underlying edema or developing infiltrates. There is no pneumothorax. Osseous structures appear stable from prior.. Impression: Similar mild cardiomegaly with development of minimal perihilar interstitial and airspace opacities may represent atelectasis or developing infiltrates versus interstitial edema changes. PROCEDURE INTERPRETED AT [facility] DEPARTMENT OF RADIOLOGY Final Report Signed by: Jeremiah Richardson
[2017-03-23 20:09] LABS: Basophils # 0.1 10*3/uL (0.0-0.2); Basophils % 0.5 % (0.0-0.8); Eosinophils # 0.2 10*3/uL (0.0-0.87); Eosinophils % 1.7 % (0.00-10.9); Hematocrit 29.7 VOL% (35.7-47.0); Immature Granulocytes % 0.7 %; Immature Granulocytes Absolute 0.07 #; Lymphocytes # 4.8 10*3/uL (1.4-4.0); Lymphocytes % 46.1 % (21.3-54.2); Mean Corpuscular HGB Conc 33.7 GM/DL (32-36); Mean Corpuscular Hemoglobin 28 PG (27-34); Mean Platelet Volume 10.6 FL (9.6-12.0); Monocytes # 0.8 10*3/uL (0.11-0.8); Monocytes % 7.9 % (1.7-12.7); NRBC # 0.04 10*3/uL; Neutrophils # 4.5 10*3/uL (1.4-7.4); Neutrophils % 43.1 % (38.7-73.9); Platelet Count 316 T/CUMM (130-400); Red Blood Count 3.58 MC/CUMM (3.8-5.5); Red Cell Distribution Width 15.9 % (9.3-17.3); White Blood Count 10.5 T/CUMM (4-12)
[2017-03-23] MEDS: QUEtiapine 25 MG TABLET PO SCH (20:30)
[2017-03-23] MEDS: GABAPENTIN 300 MG CAPSULE PO SCH (20:30)
[2017-03-23 20:39] LABS: Albumin 2.6 G/DL (3.4-5.0); Bilirubin,Total 0.6 MG/DL (0.2-1.0); Calcium 10.4 MG/DL (8.5-10.1); Osmolality,Calculated 273.8 MOS/KG (273-304); Potassium 3.9 MMOL/L (3.5-5.1); Total Protein 5.9 G/DL (6.4-8.3)
[2017-03-24] MEDS: ENOXAPARIN 40 MG/0.4 ML SYRINGE SUBCUT SCH
[2017-03-24] MEDS: ALBUTEROL/IPRATROPIUM 3 ML NEB RESP TX SCH ×3 (02:35→11:16)
[2017-03-24] MEDS: INSULIN LISPRO 100 UNIT/ML SUBCUT SCH (07:45)
[2017-03-24 08:39] VITALS: BP 135/58
[2017-03-24] MEDS: CEFUROXIME 500 MG TABLET PO SCH (09:03)
[2017-03-24] MEDS: NYSTATIN 500,000 UNIT/5 ML UDCUP SWISH/SWAL SCH (09:03)
[2017-03-24] MEDS: ASPIRIN EC 325 MG TABLET PO SCH (09:03)
[2017-03-24] MEDS: VALSARTAN 160 MG TABLET PO SCH (09:04)
[2017-03-24] MEDS: ISOSORBIDE MONONITRATE 60 MG TABLET PO SCH (09:04)
[2017-03-24] MEDS: MEMANTINE 5 MG TABLET PO SCH (09:04)
[2017-03-24] MEDS: SERTRALINE 100 MG TABLET PO SCH (09:04)
[2017-03-24] MEDS: LOVASTATIN 20 MG TABLET PO SCH (09:04)
[2017-03-24] MEDS: amLODIPine 2.5 MG TABLET PO SCH (09:04)
[2017-03-24] MEDS: CHOLECALCIFEROL 1,000 UNIT TABLET PO SCH (09:04)
[2017-03-24] MEDS: COLESEVELAM 625 MG TABLET PO SCH (09:04)
[2017-03-24] MEDS: LEVOTHYROXINE 25 MCG TABLET PO SCH (09:04)
[2017-03-24] MEDS: MAGNESIUM CHLORIDE 64 MG TABLET PO SCH (09:05)
[2017-03-24] MEDS: PANTOPRAZOLE 40 MG TABLET PO SCH (09:05)
[2017-03-24] MEDS: ZINC OXIDE PASTE 113 GM TUBE TOP SCH (09:05)
[2017-03-24] MEDS: POTASSIUM CHLORIDE 10 MEQ TABLET PO SCH (09:05)
[2017-03-24] MEDS: METOPROLOL SUCCINATE XL 50 MG TABLET PO SCH (09:05)
[2017-03-24] MEDS: hydroCHLOROthiazide 12.5 MG CAPSULE PO SCH (09:05)
[2017-03-24] MEDS: CLOPIDOGREL 75 MG TABLET PO SCH (09:05)
--- NOTE | 2017-03-24 10:11 | Discharge Summary ---
Hospital Course - Hospital Course Hospital Course: Ms. Espino is a 68-year-old white female who presented to the emergency department with increasing weakness, dysarthria, and increasing confusion. Family members noted that over the last month she has started to decline is gotten more difficult to you with transferring and has fallen on several occasions. This had progressed in the 3 hours prior to admission had worsened. She actually fell a week prior resulting in stress fracture. Appetite is been rapidly declining and intake is been poor. She was evaluated in the emergency department and CT a scan revealed no acute pathology. 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 EKG revealed sinus rhythm with frequent PVCs and chest x-ray revealed no acute pathology. Urinalysis was consistent with a urinary tract infection. She was also noted to have a normocytic anemia and several electrolyte abnormalities to include hyponatremia, hypochloremia, hypomagnesemia with a mild elevation of BUN and creatinine was 1.2. She was admitted to the hospitalist service, hydrated, cultured and placed on empiric IV antibiotics. Urine culture revealed Rocephin which was pansensitive and she was ultimately converted to oral cefuroxime. Blood cultures remained negative. Her electrolytes were corrected. Her TSH was mildly elevated at 3.76 with a normal free T4 at 1.34. Blood sugars were followed and were fairly well controlled. On the day prior to discharge her sodium was 137, potassium 3.9, chloride 101, carbon dioxide 32, BUN 12, creatinine 0.8 with a GFR of 83. Glucose 122, calcium 10.4, AST and ALT 88 and 57 respectively. Her white blood count was 10.5, hemoglobin 10.0, hematocrit 29.7, platelet count of 316,000. During her stay she also had x-ray of her hip which revealed no displaced fractures of the hip or acetabulum. There were calcifications throughout the superficial femoral artery and common femoral artery. Chest CT revealed incomplete evaluation of the subsegmental and segmental pulmonary artery branches within the lower lobes secondary to motion. There is no central filling defect to suggest pulmonary emboli. There was some airspace attenuation with surrounding groundglass attenuation and thickened intralobular septal lines in the dependently located right upper lobe with considerations of asymmetric edema, infection, atelectasis. Carotid Doppler studies revealed mild right ICA stenosis in the range of 16-49%. No significant stenosis of the left internal carotid artery. Echocardiogram was technically difficult but revealed left ventricular ejection fraction estimated at 35-40% with anteroseptal hypokinesis. There was mild concentric left ventricular hypertrophy with moderate diastolic dysfunction, mild left atrial enlargement, mild aortic sclerosis without stenosis, mildly thickened mitral valve with trace mitral regurgitation, trace tricuspid valve regurgitation. Chest x-ray on the night prior to discharge revealed mild cardiomegaly with development of minimal perihilar interstitial and airspace opacities which may represent atelectasis or developing infiltrates versus interstitial edema changes. She remained afebrile, there was no tachycardia or tachypnea. She was requiring low -dose O2 at 2 L by nasal cannula was oxygenating well. Because of the above findings will continue antibiotic therapy and will discontinue her hydrochlorothiazide and substitute with furosemide 20 mg p.o. every morning. It was felt that her decline was secondary to urinary tract infection along with progression of her dementia. She will need follow-up electrolytes and renal function in 2-3 days and adjustments in her medical regimen based on her response. During her stay she was evaluated for possible swing bed but had less than optimal cooperation with physical therapy and was deemed a non- candidate. At this time, she has been accepted to [facility] and it is felt that she is reached maximal benefit from hospital stay. Discuss with family members in the room at the time of discharge. - Time spent with patient Time with patient DS: Greater than 30 minutes Diagnosis - Discharge Diagnosis (1) UTI (urinary tract infection) Status: Acute (2) Dementia Status: Chronic (3) Hypertension Status: Chronic (4) Hypothyroidism Status: Chronic (5) Type 2 diabetes mellitus Status: Chronic (6) Hypomagnesemia Status: Resolved Discharge Plan - Discharge Data Disposition: Disch/Xfer to [facility] Condition at Discharge: Stable Discharge Diet: diabetic diet, heart healthy Activity: resume usual activities as tolerated, wear oxygen at all times ( Requirements for oxygen can be reassessed with the hopes that this may be discontinued with continued medical management) Contact your physician if you experience:: fever over 101, Nausea/Vomiting, Shortness of breath - Discharge Medications New Albuterol/Ipratropium Neb [Duoneb] 3 ml RESP TX RT Q4H Albuterol/Ipratropium Neb [Duoneb] 3 ml RESP TX RT Q4H PRN PRN Reason: Shortness Of Breath/Wheezing Dextrose 50% [D50] 25 gm IV PRN PRN vial PRN Reason: Hypoglycemia with IV access Enoxaparin [Lovenox] 40 mg SUBCUT Q24H syringe Glucagon 1 mg IM PRN PRN vial PRN Reason: Hypoglycemia w/o IV access Potassium Chloride Cap/Tab [K Dur] 10 meq PO QAM tablet Valsartan [Diovan] 160 mg PO DAILY #30 tablet Zinc Oxide Paste [Desitin Paste] 1 applic TOP BID applic cefaCLOR [Cefaclor] 500 mg PO BID #10 capsule Furosemide Tab [Lasix Tab] 20 mg PO DAILY #30 tablet Continue Clopidogrel [Plavix] 75 mg PO QAM Metoprolol Succinate 50 mg PO QAM amLODIPine [Norvasc] 2.5 mg PO QAM Aspirin [Ecotrin] 325 mg PO QAM Colesevelam [Welchol] 625 mg PO QAM Isosorbide Mononitrate [Imdur] 60 mg PO QAM Potassium Chloride Cap/Tab [K Dur] 10 meq PO QAM Magnesium Chloride [Slow Mag] 64 mg PO QAM Lovastatin [Mevacor] 40 mg PO BID W/MEALS Levothyroxine Tab [Synthroid Tab] 25 mcg PO QAM Gabapentin 300 mg PO BEDTIME Cholecalciferol [Vitamin D3] 1,000 unit PO BID Memantine [Namenda] 5 mg PO BID Esomeprazole Magnesium [Nexium] 40 mg PO QAM Sertraline [Zoloft] 100 mg PO QAM QUEtiapine [SEROquel] 50 mg PO BEDTIME #60 tablet Discontinued Pioglitazone HCl [Actos] 30 mg PO QAM Valsartan/Hydrochlorothiazide [Diovan Hct 320-12.5 mg Tab] 1 each PO QAM No Action hydroCHLOROthiazide [Hydrochlorothiazide] 12.5 mg PO QAM - Follow Up or Referral - Forms/Instructions Additional Discharge Instructions: She is to discontinue her hydrochlorothiazide. She will need Accu-Cheks before meals and at bedtime with Humulin R sliding scale insulin. Needs follow-up basic metabolic panel in 48- 72 hours. She is to follow-up with her [facility] physician in 48-72 hours. Exam - Constitutional Vitals: Period Temp Pulse Resp BP Sys/Michaud Pulse Ox Last 24 Hr 96.5 F-99.3 F 75-91 18-20 112-135/49-69 90-98 General appearance: no acute distress - Head Head exam: Present: normocephalic, atraumatic - Eye Eye exam: Present: EOMI Pupils: Present: RUSTY - ENT ENT exam: Present: normal oropharynx - Neck Neck exam: Present: normal inspection. Absent: meningismus - Respiratory Respiratory exam: Present: other - Cardiovascular Cardiovascular exam: Present: regular rate and rhythm. Absent: systolic murmur , tachycardia - GI/Abdominal GI/Abdominal exam: Present: normal bowel sounds, soft. Absent: tenderness, rebound - Extremities Exam Extremities exam: Absent: calf tenderness, edema - Neurological Exam Neurological exam: Present: alert, CN II-XII intact, reflexes normal, other ( oriented to person only). Absent: motor sensory deficit - Skin Skin exam: Present: warm, dry. Absent: erythema, rash Discharge Results Labs on day of discharge: Labs from last 24 hours 03/24/17 03/23/17 03/23/17 07:21 19:20 19:00 WBC RBC Hgb Hct MCV MCH MCHC RDW Plt Count MPV Neut % (Auto) Lymph % (Auto) [place] % (Auto) Eos % (Auto) Baso % (Auto) Neut # (Auto) Lymph # (Auto) [place] # (Auto) Eos # (Auto) Baso # (Auto) Immature Gran % Nucleated RBC % Immature Gran # Nucleated RBCs # Immature Plt Fraction Sodium 137 Potassium 3.9 Chloride 101 Carbon Dioxide 32 Anion Gap 7.9 BUN 12 Creatinine 0.80 GFR Calculation 83 BUN/Creatinine Ratio 15.00 Glucose 122 H POC Glucose 93 111 H Calculated Osmolality 273.8 Calcium 10.4 H Total Bilirubin 0.60 AST 88 H ALT 57 H Alkaline Phosphatase 70 Total Protein 5.9 L Albumin 2.6 L Globulin 3.3 Albumin/Globulin Ratio 0.7 L 03/23/17 03/23/17 03/23/17 19:00 16:46 12:06 WBC 10.5 RBC 3.58 L Hgb 10.0 L Hct 29.7 L MCV 83.0 L MCH 28 MCHC 33.7 RDW 15.9 Plt Count 316 MPV 10.6 Neut % (Auto) 43.1 Lymph % (Auto) 46.1 [place] % (Auto) 7.9 Eos % (Auto) 1.7 Baso % (Auto) 0.5 Neut # (Auto) 4.5 Lymph # (Auto) 4.8 H [place] # (Auto) 0.8 Eos # (Auto) 0.2 Baso # (Auto) 0.1 Immature Gran % 0.7 Nucleated RBC % 0.4 Immature Gran # 0.07 Nucleated RBCs # 0.04 Immature Plt Fraction 0.0 Sodium Potassium Chloride Carbon Dioxide Anion Gap BUN Creatinine GFR Calculation BUN/Creatinine Ratio Glucose POC Glucose 140 H 140 H Calculated Osmolality Calcium Total Bilirubin AST ALT Alkaline Phosphatase Total Protein Albumin Globulin Albumin/Globulin Ratio - Imaging and Cardiology Procedure: Chest x-ray: report reviewed by me, CT: report reviewed by me, Ultrasound: report reviewed by me (Echocardiogram noted) DS: Provider Date of admission: 03/14/17 22:28 Primary care physician: . No PCP Dr Robertson Attending physician on admission: Janak Blair MD Consults: 03/15/17 00:17 Consult to Case Mgmt/Social Srvs [CONS] Routine Reason for Case Mgmt/Social Srvs: Discharge Planning 03/17/17 08:09 Consult to Physical Therapy [CONS] Routine Reason for Physical Therapy: Evaluate and Treat 03/20/17 12:18 Consult to Case Mgmt/Social Srvs [CONS] Routine Reason for Case Mgmt/Social Srvs: Swingbed/SNF/Long-Term Discharging clinician: Wilder Mazariegos Expected date of discharge: 03/24/17
== END 2017-03-24 12:45 | DRG 689 ==
LOC: N.ED 18:08 → N.EDINP 22:28 → SUATTDRO 22:28 → N.5E 23:04
PROVIDERS: ADMIT Internal Medicine; ATTEND Hospitalist

== ENCOUNTER 2020-07-29 18:50 | Inpatient (IN) ==
[2020-07-29] MEDS ORDERED: SODIUM CHLORIDE 0.9% 1,000 ML IV STA (19:20)
[2020-07-29 21:25] LABS: Albumin 2.5 G/DL (3.4-5.0); Bilirubin,Total 0.4 MG/DL (0.2-1.0); Calcium 10.6 MG/DL (8.5-10.1); Osmolality,Calculated 287.8 MOS/KG (273-304); Total Protein 7.5 G/DL (6.4-8.3)
[2020-07-29 22:16] LABS: Basophils # 0.1 10*3/uL (0.0-0.2); Basophils % 0.3 % (0.0-0.8); Eosinophils # 0.8 10*3/uL (0.0-0.87); Eosinophils % 5.1 % (0.00-10.9); Hematocrit 32.5 VOL% (35.7-47.0); Hemoglobin 10.6 GM/DL (12.0-16.0); Immature Granulocytes % 0.4 %; Immature Granulocytes Absolute 0.07 #; Lymphocytes # 3.2 10*3/uL (1.4-4.0); Lymphocytes % 20.1 % (21.3-54.2); Mean Corpuscular HGB Conc 32.6 GM/DL (32-36); Mean Corpuscular Volume 87.8 FL (87-102); Mean Platelet Volume 11.3 FL (9.6-12.0); Monocytes % 6.6 % (1.7-12.7); Neutrophils % 67.5 % (38.7-73.9); Platelet Count 215 T/CUMM (130-400); Red Cell Distribution Width 13.9 % (9.3-17.3); White Blood Count 16.2 T/CUMM (4-12)
[2020-07-29] MEDS ORDERED: cefTRIAXone 1,000 MG in SODIUM CHLORIDE 0.9% 100 ML IV STA (22:25)
[2020-07-29 23:09] LABS: Bacteria,Urine Occasional /HPF (Few); Bilirubin,Urine Negative (Negative); Blood, Urine Negative (Negative); Glucose,Urine (UA) Negative (Negative); Ketones,Urine Negative (Negative); Mucus,Urine Occasional /LPF (Occasional); Nitrite,Urine Negative (Negative); Protein,Urine Negative; RBC,Urine <1 /HPF (0-4); Urine Appearance CLEAR (Clear); Urine Color Yellow (Yellow); Urine Specific Gravity 1.017 (1.001-1.035); Urine Urobilinogen < 2.0 EU/DL (0.2-1.0); WBC,Urine 1 /HPF (0-6)
[2020-07-30] MEDS ORDERED: GLUCAGON 1 MG VIAL IM PRN ×2 (00:17→00:31)
[2020-07-30] MEDS ORDERED: DEXTROSE 50% 25 GM/50 ML VIAL IV PRN ×2 (00:17→00:31)
[2020-07-30] MEDS ORDERED: ACETAMINOPHEN 325 MG TABLET PO PRN (00:31)
[2020-07-30 07:46] LABS: Basophils # 0.1 10*3/uL (0.0-0.2); Basophils % 0.4 % (0.0-0.8); Eosinophils # 0.6 10*3/uL (0.0-0.87); Eosinophils % 4.6 % (0.00-10.9); Hematocrit 30.1 VOL% (35.7-47.0); Hemoglobin 9.9 GM/DL (12.0-16.0); Immature Granulocytes % 0.4 %; Immature Granulocytes Absolute 0.05 #; Lymphocytes % 28.5 % (21.3-54.2); Mean Corpuscular HGB Conc 32.9 GM/DL (32-36); Mean Platelet Volume 11.3 FL (9.6-12.0); Monocytes % 7.9 % (1.7-12.7); Neutrophils % 58.2 % (38.7-73.9); Platelet Count 191 T/CUMM (130-400); Red Blood Count 3.46 MC/CUMM (3.8-5.5); Red Cell Distribution Width 13.6 % (9.3-17.3); White Blood Count 13.9 T/CUMM (4-12)
[2020-07-30 08:10] LABS: Albumin 2.2 G/DL (3.4-5.0); Bilirubin,Total 0.4 MG/DL (0.2-1.0); Calcium 9.9 MG/DL (8.5-10.1); Total Protein 6.7 G/DL (6.4-8.3)
[2020-07-30] MEDS: PANTOPRAZOLE 40 MG TABLET PO SCH (10:42)
[2020-07-30] MEDS: ENOXAPARIN 40 MG/0.4 ML SYRINGE SUBCUT SCH (10:42)
[2020-07-30] MEDS: GABAPENTIN 300 MG CAPSULE PO SCH ×3 (18:01→21:18)
[2020-07-30] MEDS: POTASSIUM CHLORIDE 20 MEQ TABLET PO PRN ×2 (18:01→21:18)
[2020-07-30] MEDS: METOPROLOL TARTRATE 100 MG TABLET PO SCH (18:01)
[2020-07-30] MEDS: FUROSEMIDE 20 MG TABLET PO SCH (18:01)
[2020-07-30] MEDS: LOSARTAN 50 MG TABLET PO SCH (18:01)
[2020-07-30] MEDS: ZINC OXIDE 16% PASTE 57 GM TUBE TOP SCH ×2 (18:01→21:18)
[2020-07-30] MEDS: INSULIN REGULAR 100 UNIT/ML SUBCUT SCH ×3 (20:24→21:18)
[2020-07-30] MEDS ORDERED: OLANZapine 5 MG TABLET PO SCH (21:00)
[2020-07-30] MEDS ORDERED: cefTRIAXone 1,000 MG in SYRINGE 1 EACH IV SCH (21:00)
[2020-07-30] MEDS: OXcarbazepine 300 MG TABLET PO SCH ×2 (21:18)
[2020-07-30] MEDS: SIMVASTATIN 20 MG TABLET PO SCH ×2 (21:18)
[2020-07-30] MEDS: MEMANTINE 10 MG TABLET PO SCH (21:18)
[2020-07-30] MEDS: POTASSIUM CHLORIDE RIDER 10 MEQ in PREMIX 1 EACH IV PRN (23:17)
[2020-07-30] MEDS ORDERED: ACETAMINOPHEN 325 MG SUPP RECTAL ONE (23:52)
[2020-07-30] MEDS ORDERED: ACETAMINOPHEN 650 MG SUPP RECTAL PRN (23:52)
[2020-07-31] MEDS: POTASSIUM CHLORIDE RIDER 10 MEQ in PREMIX 1 EACH IV PRN ×4 (00:43→05:23)
[2020-07-31 05:55] LABS: Basophils # 0.1 10*3/uL (0.0-0.2); Basophils % 0.4 % (0.0-0.8); Eosinophils # 0.8 10*3/uL (0.0-0.87); Eosinophils % 5.7 % (0.00-10.9); Hematocrit 33.1 VOL% (35.7-47.0); Hemoglobin 10.7 GM/DL (12.0-16.0); Immature Granulocytes % 0.3 %; Immature Granulocytes Absolute 0.05 #; Lymphocytes # 5.1 10*3/uL (1.4-4.0); Lymphocytes % 35.3 % (21.3-54.2); Mean Corpuscular HGB Conc 32.3 GM/DL (32-36); Mean Corpuscular Volume 86.2 FL (87-102); Mean Platelet Volume 11.1 FL (9.6-12.0); Neutrophils % 51.3 % (38.7-73.9); Platelet Count 242 T/CUMM (130-400); Red Blood Count 3.84 MC/CUMM (3.8-5.5); Red Cell Distribution Width 13.2 % (9.3-17.3); White Blood Count 14.4 T/CUMM (4-12)
[2020-07-31 06:28] LABS: Calcium 9.9 MG/DL (8.5-10.1); Osmolality,Calculated 272.7 MOS/KG (273-304)
[2020-07-31] MEDS ORDERED: LEVOTHYROXINE 25 MCG TABLET PO SCH (06:30)
[2020-07-31 07:11] LABS: Eosinophils 6 % (0-10); Hypochromasia 1+; Lymphocytes 32 % (20-55); Segmented Neutrophils 57 % (50-85); Total Cells Counted 100
[2020-07-31 07:12] LABS: Microcytosis 1+; Platelet Estimate Normal
[2020-07-31] MEDS: PANTOPRAZOLE 40 MG TABLET PO SCH (08:56)
[2020-07-31] MEDS: LOSARTAN 50 MG TABLET PO SCH (08:56)
[2020-07-31] MEDS: METOPROLOL TARTRATE 100 MG TABLET PO SCH (08:56)
[2020-07-31] MEDS: POTASSIUM CHLORIDE 20 MEQ TABLET PO PRN (08:56)
[2020-07-31] MEDS: ZINC OXIDE 16% PASTE 57 GM TUBE TOP SCH (08:57)
[2020-07-31] MEDS: MEMANTINE 10 MG TABLET PO SCH (08:57)
[2020-07-31] MEDS: ENOXAPARIN 40 MG/0.4 ML SYRINGE SUBCUT SCH (08:57)
[2020-07-31] MEDS ORDERED: ISOSORBIDE MONONITRATE 60 MG TABLET PO SCH (09:00)
[2020-07-31] MEDS: FUROSEMIDE 20 MG TABLET PO SCH (09:00)
[2020-07-31] MEDS ORDERED: POTASSIUM CHLORIDE 10 MEQ TABLET PO SCH (09:00)
[2020-07-31] MEDS ORDERED: MAGNESIUM OXIDE 400 MG TABLET PO SCH (09:00)
[2020-07-31 11:35] VITALS: BP 130/51
[2020-07-31] MEDS: INSULIN REGULAR 100 UNIT/ML SUBCUT SCH (12:33)
== END 2020-07-31 16:45 | DRG 690 ==
LOC: EDBD → EDUNIT# → N.EDINP 18:50 → N.ED 18:50 → N.3E 07-30 01:12
PROVIDERS: ADMIT Emergency Medicine; ATTEND Emergency Medicine

== ENCOUNTER 2020-09-04 10:26 | Inpatient (IN) ==
[2020-09-04] MEDS ORDERED: VANCOMYCIN INJ 1,250 MG in SODIUM CHLORIDE 0.9% 250 ML IV STA (10:52)
[2020-09-04] MEDS ORDERED: CEFEPIME 1,000 MG in SODIUM CHLORIDE 0.9% 100 ML IV STA (10:52)
[2020-09-04] MEDS ORDERED: LACTATED RINGERS 500 ML IV ONE (10:54)
[2020-09-04 11:08] LABS: Basophils # 0.1 10*3/uL (0.0-0.2); Basophils % 0.4 % (0.0-0.8); Eosinophils % 0.3 % (0.00-10.9); Hematocrit 34.7 VOL% (35.7-47.0); Hemoglobin 10.9 GM/DL (12.0-16.0); Immature Granulocytes % 0.3 %; Immature Granulocytes Absolute 0.05 #; Lymphocytes # 3.8 10*3/uL (1.4-4.0); Lymphocytes % 26.3 % (21.3-54.2); Mean Corpuscular HGB Conc 31.4 GM/DL (32-36); Mean Corpuscular Volume 88.7 FL (87-102); Mean Platelet Volume 11.4 FL (9.6-12.0); Monocytes % 7.5 % (1.7-12.7); Neutrophils % 65.2 % (38.7-73.9); Platelet Count 263 T/CUMM (130-400); Red Blood Count 3.91 MC/CUMM (3.8-5.5); White Blood Count 14.3 T/CUMM (4-12)
[2020-09-04 11:20] LABS: PT Patient Result 11.1 SECS (9.8-11.9); Partial Thromboplastin Time 23.2 SECS (23.9-33.8)
[2020-09-04 11:33] LABS: Albumin 2.3 G/DL (3.4-5.0); Bilirubin,Total 0.4 MG/DL (0.2-1.0); Calcium 10.1 MG/DL (8.5-10.1); Osmolality,Calculated 291.7 MOS/KG (273-304); Potassium 3.4 MMOL/L (3.5-5.1); Total Protein 7.5 G/DL (6.4-8.3)
[2020-09-04 11:39] LABS: Bacteria,Urine Occasional /HPF (Few); Bilirubin,Urine Negative (Negative); Blood, Urine Negative (Negative); Glucose,Urine (UA) Negative (Negative); Hyaline Casts,Urine 3 /LPF (0-3); Ketones,Urine 5 mg/dL (Negative); Mucus,Urine Moderate /LPF (Occasional); Nitrite,Urine Negative (Negative); Protein,Urine 100 MG/DL; RBC,Urine 2 /HPF (0-4); Squamous Epithelial Cell,Urine Occasional /HPF (0-10); Urine Appearance Slightly Hazy (Clear); Urine Color Yellow (Yellow); Urine Specific Gravity 1.026 (1.001-1.035); Urine Urobilinogen < 2.0 EU/DL (0.2-1.0)
[2020-09-04] MEDS ORDERED: GLUCAGON 1 MG VIAL IM PRN (12:21)
[2020-09-04] MEDS ORDERED: hydrALAZINE 20 MG/1 ML VIAL IV PRN (12:21)
[2020-09-04] MEDS ORDERED: DEXTROSE 50% 25 GM/50 ML VIAL IV PRN (12:21)
[2020-09-04] MEDS ORDERED: ONDANSETRON 4 MG/2 ML VIAL IV PRN (12:21)
[2020-09-04] MEDS ORDERED: INFLUENZA VIRUS VACCINE 0.5 ML SYRINGE IM ONE (13:31)
[2020-09-04] MEDS: ALBUTEROL 2.5 MG/3 ML NEB RESP TX SCH ×2 (13:48→20:04)
[2020-09-04] MEDS: PIPERACILLIN/TAZOBACTAM 3,375 MG in SODIUM CHLORIDE 0.9% 100 ML IV SCH ×2 (14:02→21:35)
[2020-09-04] MEDS: SODIUM CHLORIDE 0.9% 1,000 ML IV SCH (14:02)
[2020-09-04] MEDS: ENOXAPARIN 40 MG/0.4 ML SYRINGE SUBCUT SCH (14:02)
[2020-09-05] MEDS: ALBUTEROL 2.5 MG/3 ML NEB RESP TX SCH ×4 (00:44→20:14)
[2020-09-05] MEDS: ACETAMINOPHEN 650 MG SUPP RECTAL PRN ×2 (01:15→11:28)
[2020-09-05 06:09] LABS: Basophils # 0.1 10*3/uL (0.0-0.2); Basophils % 0.3 % (0.0-0.8); Eosinophils % 0.2 % (0.00-10.9); Hematocrit 34.7 VOL% (35.7-47.0); Hemoglobin 10.5 GM/DL (12.0-16.0); Immature Granulocytes % 0.4 %; Immature Granulocytes Absolute 0.06 #; Lymphocytes # 3.5 10*3/uL (1.4-4.0); Lymphocytes % 22.2 % (21.3-54.2); Mean Corpuscular HGB Conc 30.3 GM/DL (32-36); Mean Corpuscular Volume 90.4 FL (87-102); Monocytes % 6.4 % (1.7-12.7); Neutrophils % 70.5 % (38.7-73.9); Platelet Count 267 T/CUMM (130-400); Red Blood Count 3.84 MC/CUMM (3.8-5.5); White Blood Count 15.7 T/CUMM (4-12)
[2020-09-05 06:30] LABS: Albumin 2.2 G/DL (3.4-5.0); Bilirubin,Direct 0.15 MG/DL (0.0-0.20); Bilirubin,Total 1.1 MG/DL (0.2-1.0)
[2020-09-05 06:39] LABS: Calcium 10.5 MG/DL (8.5-10.1); Osmolality,Calculated 295.3 MOS/KG (273-304); Potassium 2.9 MMOL/L (3.5-5.1); Risk Ratio 4.15; Thyroid Stimulating Hormone 0.89 uIU/ml (0.358-3.74); VLDL CHOLESTEROL 19.6 MG/DL
[2020-09-05] MEDS: PIPERACILLIN/TAZOBACTAM 3,375 MG in SODIUM CHLORIDE 0.9% 100 ML IV SCH ×3 (07:14→21:10)
[2020-09-05] MEDS: PANTOPRAZOLE 40 MG VIAL IV SCH (09:26)
[2020-09-05] MEDS: POTASSIUM CHLORIDE RIDER 10 MEQ in PREMIX 1 EACH IV PRN ×7 (09:27→23:17)
[2020-09-05] MEDS: ENOXAPARIN 40 MG/0.4 ML SYRINGE SUBCUT SCH (11:37)
[2020-09-05] MEDS: SODIUM CHLORIDE 0.9% 1,000 ML IV SCH ×2 (12:04→18:43)
[2020-09-05] MEDS ORDERED: FUROSEMIDE 20 MG/2 ML VIAL IV ONE (13:30)
[2020-09-06] MEDS: POTASSIUM CHLORIDE RIDER 10 MEQ in PREMIX 1 EACH IV PRN ×3 (00:40→03:25)
[2020-09-06] MEDS: ALBUTEROL 2.5 MG/3 ML NEB RESP TX SCH ×4 (00:45→19:32)
[2020-09-06] MEDS: PIPERACILLIN/TAZOBACTAM 3,375 MG in SODIUM CHLORIDE 0.9% 100 ML IV SCH ×3 (04:27→20:32)
[2020-09-06 07:29] LABS: Basophils % 0.2 % (0.0-0.8); Hematocrit 33.3 VOL% (35.7-47.0); Hemoglobin 10.1 GM/DL (12.0-16.0); Immature Granulocytes % 0.4 %; Immature Granulocytes Absolute 0.05 #; Lymphocytes # 2.7 10*3/uL (1.4-4.0); Lymphocytes % 20.5 % (21.3-54.2); Mean Corpuscular HGB Conc 30.3 GM/DL (32-36); Mean Corpuscular Volume 90.7 FL (87-102); Mean Platelet Volume 11.9 FL (9.6-12.0); Monocytes % 6.6 % (1.7-12.7); Neutrophils % 72.3 % (38.7-73.9); Platelet Count 256 T/CUMM (130-400); Red Blood Count 3.67 MC/CUMM (3.8-5.5); Red Cell Distribution Width 14.2 % (9.3-17.3); White Blood Count 13.3 T/CUMM (4-12)
[2020-09-06 07:48] LABS: Osmolality,Calculated 300.1 MOS/KG (273-304)
[2020-09-06] MEDS: PANTOPRAZOLE 40 MG VIAL IV SCH (09:03)
[2020-09-06] MEDS: SODIUM CHLORIDE 0.9% 1,000 ML IV SCH (10:12)
[2020-09-06] MEDS: ENOXAPARIN 40 MG/0.4 ML SYRINGE SUBCUT SCH (12:01)
[2020-09-06] MEDS: ACETAMINOPHEN 650 MG SUPP RECTAL PRN ×2 (17:26→20:29)
[2020-09-07] MEDS: ALBUTEROL 2.5 MG/3 ML NEB RESP TX SCH ×3 (01:06→12:45)
[2020-09-07] MEDS: SODIUM CHLORIDE 0.45% 1,000 ML IV SCH ×3 (02:01→17:17)
[2020-09-07] MEDS: ACETAMINOPHEN 650 MG SUPP RECTAL PRN ×2 (04:55→08:01)
[2020-09-07] MEDS: PIPERACILLIN/TAZOBACTAM 3,375 MG in SODIUM CHLORIDE 0.9% 100 ML IV SCH ×3 (05:08→20:58)
[2020-09-07 06:06] LABS: Basophils % 0.3 % (0.0-0.8); Hematocrit 32.3 VOL% (35.7-47.0); Hemoglobin 9.7 GM/DL (12.0-16.0); Immature Granulocytes % 0.3 %; Immature Granulocytes Absolute 0.03 #; Lymphocytes % 25.5 % (21.3-54.2); Mean Corpuscular Volume 91.8 FL (87-102); Monocytes % 7.2 % (1.7-12.7); Neutrophils % 66.7 % (38.7-73.9); Platelet Count 237 T/CUMM (130-400); Red Blood Count 3.52 MC/CUMM (3.8-5.5); Red Cell Distribution Width 14.4 % (9.3-17.3); White Blood Count 11.6 T/CUMM (4-12)
[2020-09-07 06:38] LABS: Calcium 10.1 MG/DL (8.5-10.1); Osmolality,Calculated 314.2 MOS/KG (273-304); Potassium 2.8 MMOL/L (3.5-5.1)
[2020-09-07] MEDS: PANTOPRAZOLE 40 MG VIAL IV SCH (08:00)
[2020-09-07] MEDS ORDERED: ALBUTEROL/IPRATROPIUM 3 ML NEB RESP TX PRN (13:42)
[2020-09-07] MEDS: SIMVASTATIN 20 MG TABLET PO SCH (20:57)
[2020-09-07] MEDS: ENOXAPARIN 40 MG/0.4 ML SYRINGE SUBCUT SCH (20:57)
[2020-09-07] MEDS: MEMANTINE 10 MG TABLET PO SCH (20:57)
[2020-09-08] MEDS: ACETAMINOPHEN 650 MG SUPP RECTAL PRN ×2 (01:00→06:15)
[2020-09-08] MEDS: SODIUM CHLORIDE 0.45% 1,000 ML IV SCH (02:05)
[2020-09-08 05:24] LABS: Basophils % 0.2 % (0.0-0.8); Eosinophils % 0.2 % (0.00-10.9); Hemoglobin 10.1 GM/DL (12.0-16.0); Immature Granulocytes % 0.5 %; Immature Granulocytes Absolute 0.06 #; Lymphocytes # 2.9 10*3/uL (1.4-4.0); Mean Corpuscular HGB Conc 30.6 GM/DL (32-36); Mean Corpuscular Volume 90.7 FL (87-102); Mean Platelet Volume 12.8 FL (9.6-12.0); Monocytes % 6.3 % (1.7-12.7); NRBC # 0.02 10*3/uL; Neutrophils % 69.8 % (38.7-73.9); Platelet Count 245 T/CUMM (130-400); Red Blood Count 3.64 MC/CUMM (3.8-5.5); Red Cell Distribution Width 14.6 % (9.3-17.3); White Blood Count 12.7 T/CUMM (4-12)
[2020-09-08 05:49] LABS: Potassium 2.8 MMOL/L (3.5-5.1)
[2020-09-08] MEDS: PIPERACILLIN/TAZOBACTAM 3,375 MG in SODIUM CHLORIDE 0.9% 100 ML IV SCH ×3 (05:55→21:03)
[2020-09-08] MEDS: LEVOTHYROXINE 25 MCG TABLET PO SCH (05:55)
[2020-09-08] MEDS: PANTOPRAZOLE 40 MG VIAL IV SCH (09:07)
[2020-09-08] MEDS: DEXTROSE 5% 1,000 ML IV SCH (09:08)
[2020-09-08] MEDS: MEMANTINE 10 MG TABLET PO SCH ×2 (10:25→21:03)
[2020-09-08] MEDS: OXcarbazepine 300 MG TABLET PO SCH (10:26)
[2020-09-08] MEDS: ISOSORBIDE MONONITRATE 60 MG TABLET PO SCH (10:26)
[2020-09-08] MEDS: LOSARTAN 50 MG TABLET PO SCH (10:26)
[2020-09-08] MEDS: ENOXAPARIN 60 MG/0.6 ML SYRINGE SUBCUT SCH ×2 (10:27→21:03)
[2020-09-08] MEDS: MAGNESIUM OXIDE 400 MG TABLET PO SCH (10:27)
[2020-09-08] MEDS: CALCIUM (CARBONATE)/VITAMIN D 600 MG-400 UNIT TABLET PO SCH (10:27)
[2020-09-08] MEDS ORDERED: POTASSIUM CHLORIDE 20 MEQ/15 ML UDCUP PO ONE (11:00)
[2020-09-08 13:16] LABS: Calcium 9.4 MG/DL (8.5-10.1); Osmolality,Calculated 317.3 MOS/KG (273-304)
[2020-09-08 13:25] LABS: Potassium 2.9 MMOL/L (3.5-5.1)
[2020-09-08] MEDS ORDERED: POTASSIUM PHOSPHATE 30 MMOL in SODIUM CHLORIDE 0.9% 250 ML IV ONE (17:00)
[2020-09-08] MEDS: INSULIN LISPRO 100 UNIT/ML SUBCUT SCH (17:31)
[2020-09-08] MEDS: SIMVASTATIN 20 MG TABLET PO SCH (21:03)
[2020-09-09] MEDS: INSULIN LISPRO 100 UNIT/ML SUBCUT SCH ×4 (01:22→17:37)
[2020-09-09] MEDS: PIPERACILLIN/TAZOBACTAM 3,375 MG in SODIUM CHLORIDE 0.9% 100 ML IV SCH ×3 (04:57→21:40)
[2020-09-09] MEDS: LEVOTHYROXINE 25 MCG TABLET PO SCH (06:02)
[2020-09-09] MEDS: DEXTROSE 5% 1,000 ML IV SCH ×2 (06:18→16:45)
[2020-09-09 06:56] LABS: Basophils % 0.1 % (0.0-0.8); Eosinophils # 0.2 10*3/uL (0.0-0.87); Eosinophils % 1.5 % (0.00-10.9); Hemoglobin 8.2 GM/DL (12.0-16.0); Immature Granulocytes % 0.4 %; Immature Granulocytes Absolute 0.04 #; Lymphocytes # 3.5 10*3/uL (1.4-4.0); Lymphocytes % 33.1 % (21.3-54.2); Mean Corpuscular HGB Conc 30.4 GM/DL (32-36); Mean Corpuscular Volume 89.7 FL (87-102); Mean Platelet Volume 12.8 FL (9.6-12.0); Monocytes % 4.8 % (1.7-12.7); NRBC # 0.02 10*3/uL; Neutrophils % 60.1 % (38.7-73.9); Platelet Count 209 T/CUMM (130-400); Red Blood Count 3.01 MC/CUMM (3.8-5.5); Red Cell Distribution Width 14.9 % (9.3-17.3); White Blood Count 10.7 T/CUMM (4-12)
[2020-09-09 07:16] LABS: Calcium 8.8 MG/DL (8.5-10.1); Osmolality,Calculated 308.7 MOS/KG (273-304); Potassium 3.7 MMOL/L (3.5-5.1)
[2020-09-09] MEDS: ENOXAPARIN 60 MG/0.6 ML SYRINGE SUBCUT SCH (09:46)
[2020-09-09] MEDS: MEMANTINE 10 MG TABLET PO SCH ×2 (09:47→21:41)
[2020-09-09] MEDS: ISOSORBIDE MONONITRATE 60 MG TABLET PO SCH (09:47)
[2020-09-09] MEDS: LOSARTAN 50 MG TABLET PO SCH (09:47)
[2020-09-09] MEDS: MAGNESIUM OXIDE 400 MG TABLET PO SCH (09:47)
[2020-09-09] MEDS: OXcarbazepine 300 MG TABLET PO SCH (09:47)
[2020-09-09] MEDS: PANTOPRAZOLE 40 MG VIAL IV SCH (09:47)
[2020-09-09] MEDS: CALCIUM (CARBONATE)/VITAMIN D 600 MG-400 UNIT TABLET PO SCH (09:47)
[2020-09-09] MEDS ORDERED: TUBERCULIN SKIN TEST 0.1 ML SYRINGE INTRADERM ONE (17:00)
[2020-09-09] MEDS: SIMVASTATIN 20 MG TABLET PO SCH (21:41)
[2020-09-10] MEDS: INSULIN LISPRO 100 UNIT/ML SUBCUT SCH ×4 (01:30→17:30)
[2020-09-10 05:34] LABS: Basophils % 0.2 % (0.0-0.8); Eosinophils # 0.3 10*3/uL (0.0-0.87); Eosinophils % 3.3 % (0.00-10.9); Hematocrit 23.8 VOL% (35.7-47.0); Hemoglobin 7.8 GM/DL (12.0-16.0); Immature Granulocytes % 0.4 %; Immature Granulocytes Absolute 0.04 #; Lymphocytes # 2.8 10*3/uL (1.4-4.0); Lymphocytes % 26.6 % (21.3-54.2); Mean Corpuscular HGB Conc 32.8 GM/DL (32-36); Mean Corpuscular Volume 86.2 FL (87-102); Mean Platelet Volume 12.5 FL (9.6-12.0); Monocytes % 4.4 % (1.7-12.7); NRBC # 0.02 10*3/uL; Neutrophils % 65.1 % (38.7-73.9); Platelet Count 187 T/CUMM (130-400); Red Blood Count 2.76 MC/CUMM (3.8-5.5); Red Cell Distribution Width 14.6 % (9.3-17.3); White Blood Count 10.4 T/CUMM (4-12)
[2020-09-10 05:46] LABS: PT Patient Result 10.6 SECS (9.8-11.9)
[2020-09-10 06:04] LABS: Calcium 8.7 MG/DL (8.5-10.1); Potassium 3.4 MMOL/L (3.5-5.1)
[2020-09-10] MEDS: PIPERACILLIN/TAZOBACTAM 3,375 MG in SODIUM CHLORIDE 0.9% 100 ML IV SCH (06:05)
[2020-09-10] MEDS: LEVOTHYROXINE 25 MCG TABLET PO SCH (06:07)
[2020-09-10] MEDS ORDERED: LACTATED RINGERS 1,000 ML IV SCH (08:00)
[2020-09-10] MEDS: PANTOPRAZOLE 40 MG VIAL IV SCH (08:53)
[2020-09-10] MEDS: CALCIUM (CARBONATE)/VITAMIN D 600 MG-400 UNIT TABLET PO SCH (09:30)
[2020-09-10] MEDS: LOSARTAN 50 MG TABLET PO SCH (09:30)
[2020-09-10] MEDS: MEMANTINE 10 MG TABLET PO SCH ×2 (09:31→22:17)
[2020-09-10] MEDS: ISOSORBIDE MONONITRATE 60 MG TABLET PO SCH (09:31)
[2020-09-10] MEDS: OXcarbazepine 300 MG TABLET PO SCH (09:31)
[2020-09-10] MEDS: MAGNESIUM OXIDE 400 MG TABLET PO SCH (09:31)
[2020-09-10] MEDS: DEXTROSE 5% 1,000 ML IV SCH (09:32)
[2020-09-10] MEDS ORDERED: POTASSIUM PHOSPHATE 21 MMOL in SODIUM CHLORIDE 0.9% 250 ML IV ONE (11:00)
[2020-09-10] MEDS ORDERED: ceFAZolin 1,000 MG in SYRINGE 1 EACH IV ONE (11:28)
[2020-09-10] MEDS: ceFAZolin 1,000 MG in SYRINGE 1 EACH IV ONE ×2 (11:54→12:55)
[2020-09-10] MEDS ORDERED: LIDOCAINE 2% 5 ML VIAL ONE (12:10)
[2020-09-10] MEDS ORDERED: propofoL 200 MG/20 ML VIAL IV ONE (12:10)
[2020-09-10] MEDS: SIMVASTATIN 20 MG TABLET PO SCH (22:17)
[2020-09-11 04:32] LABS: Basophils % 0.1 % (0.0-0.8); Eosinophils # 0.3 10*3/uL (0.0-0.87); Eosinophils % 2.7 % (0.00-10.9); Hematocrit 27.5 VOL% (35.7-47.0); Hemoglobin 8.6 GM/DL (12.0-16.0); Immature Granulocytes % 0.5 %; Immature Granulocytes Absolute 0.05 #; Lymphocytes % 27.6 % (21.3-54.2); Mean Corpuscular HGB Conc 31.3 GM/DL (32-36); Mean Corpuscular Volume 87.3 FL (87-102); Mean Platelet Volume 12.8 FL (9.6-12.0); Monocytes % 4.5 % (1.7-12.7); Neutrophils % 64.6 % (38.7-73.9); Platelet Count 220 T/CUMM (130-400); Red Blood Count 3.15 MC/CUMM (3.8-5.5); Red Cell Distribution Width 14.6 % (9.3-17.3); White Blood Count 10.9 T/CUMM (4-12)
[2020-09-11 04:51] LABS: Potassium 3.6 MMOL/L (3.5-5.1)
[2020-09-11] MEDS: INSULIN LISPRO 100 UNIT/ML SUBCUT SCH ×3 (05:55→18:20)
[2020-09-11] MEDS: LEVOTHYROXINE 25 MCG TABLET PO SCH (06:53)
[2020-09-11] MEDS: PANTOPRAZOLE 40 MG VIAL IV SCH (09:15)
[2020-09-11] MEDS: ISOSORBIDE MONONITRATE 60 MG TABLET PO SCH (09:15)
[2020-09-11] MEDS: CALCIUM (CARBONATE)/VITAMIN D 600 MG-400 UNIT TABLET PO SCH (09:16)
[2020-09-11] MEDS: LOSARTAN 50 MG TABLET PO SCH (09:16)
[2020-09-11] MEDS: OXcarbazepine 300 MG TABLET PO SCH (09:16)
[2020-09-11] MEDS: MEMANTINE 10 MG TABLET PO SCH ×2 (09:16→20:56)
[2020-09-11] MEDS: MAGNESIUM OXIDE 400 MG TABLET PO SCH (09:16)
[2020-09-11] MEDS: SIMVASTATIN 20 MG TABLET PO SCH (20:56)
[2020-09-11] MEDS: APIXABAN 5 MG TABLET PO SCH (20:56)
[2020-09-12] MEDS: INSULIN LISPRO 100 UNIT/ML SUBCUT SCH ×4 (00:42→17:20)
[2020-09-12] MEDS: LEVOTHYROXINE 25 MCG TABLET PO SCH (07:12)
[2020-09-12] MEDS: PANTOPRAZOLE 40 MG VIAL IV SCH (09:06)
[2020-09-12] MEDS: APIXABAN 5 MG TABLET PO SCH ×2 (09:51→21:01)
[2020-09-12] MEDS: MAGNESIUM OXIDE 400 MG TABLET PO SCH (09:52)
[2020-09-12] MEDS: CALCIUM (CARBONATE)/VITAMIN D 600 MG-400 UNIT TABLET PO SCH (09:52)
[2020-09-12] MEDS: LOSARTAN 50 MG TABLET PO SCH (09:52)
[2020-09-12] MEDS: MEMANTINE 10 MG TABLET PO SCH ×2 (09:52→21:02)
[2020-09-12] MEDS: ISOSORBIDE MONONITRATE 60 MG TABLET PO SCH (09:52)
[2020-09-12] MEDS: OXcarbazepine 300 MG TABLET PO SCH (09:53)
[2020-09-12] MEDS: SIMVASTATIN 20 MG TABLET PO SCH (21:02)
[2020-09-13] MEDS: INSULIN LISPRO 100 UNIT/ML SUBCUT SCH ×4 (00:01→18:19)
[2020-09-13] MEDS: LEVOTHYROXINE 25 MCG TABLET PO SCH (05:55)
[2020-09-13] MEDS: LOSARTAN 50 MG TABLET PO SCH (09:26)
[2020-09-13] MEDS: MEMANTINE 10 MG TABLET PO SCH ×2 (09:26→20:30)
[2020-09-13] MEDS: APIXABAN 5 MG TABLET PO SCH ×2 (09:26→20:29)
[2020-09-13] MEDS: OXcarbazepine 300 MG TABLET PO SCH (09:26)
[2020-09-13] MEDS: MAGNESIUM OXIDE 400 MG TABLET PO SCH (09:26)
[2020-09-13] MEDS: ISOSORBIDE MONONITRATE 60 MG TABLET PO SCH (09:26)
[2020-09-13] MEDS: CALCIUM (CARBONATE)/VITAMIN D 600 MG-400 UNIT TABLET PO SCH (13:04)
[2020-09-13] MEDS: PANTOPRAZOLE 40 MG VIAL IV SCH (13:05)
[2020-09-13] MEDS: SIMVASTATIN 20 MG TABLET PO SCH (20:30)
[2020-09-14] MEDS: INSULIN LISPRO 100 UNIT/ML SUBCUT SCH ×3 (01:01→11:29)
[2020-09-14] MEDS: LEVOTHYROXINE 25 MCG TABLET PO SCH (05:43)
[2020-09-14] MEDS: MEMANTINE 10 MG TABLET PO SCH (08:15)
[2020-09-14] MEDS: PANTOPRAZOLE 40 MG VIAL IV SCH (08:15)
[2020-09-14] MEDS: APIXABAN 5 MG TABLET PO SCH (08:15)
[2020-09-14] MEDS: LOSARTAN 50 MG TABLET PO SCH (08:15)
[2020-09-14] MEDS: MAGNESIUM OXIDE 400 MG TABLET PO SCH (08:15)
[2020-09-14] MEDS: CALCIUM (CARBONATE)/VITAMIN D 600 MG-400 UNIT TABLET PO SCH (08:16)
[2020-09-14] MEDS: ISOSORBIDE MONONITRATE 60 MG TABLET PO SCH (08:16)
[2020-09-14] MEDS: OXcarbazepine 300 MG TABLET PO SCH (08:30)
[2020-09-14 12:21] VITALS: BP 118/52
[2020-09-15] MEDS ORDERED: APIXABAN 5 MG TABLET PO SCH (09:00)
== END 2020-09-14 12:32 | DRG 177 ==
LOC: EDBD → EDUNIT# → N.ED 10:26 → SUATTDRO 12:21 → N.EDINP 12:21 → N.5E 13:07
PROVIDERS: ADMIT Emergency Medicine; ATTEND Internal Medicine
PROC: EGDWPEG (ICD-10-PCS; 2020-09-10 11:05)

== ENCOUNTER 2020-10-01 07:13 | Inpatient (IN) ==
[2020-10-01] MEDS ORDERED: ACETAMINOPHEN 650 MG SUPP RECTAL STA (07:39)
[2020-10-01] MEDS ORDERED: SODIUM CHLORIDE 0.9% 1,000 ML IV STA ×3 (07:44→09:10)
[2020-10-01 07:52] LABS: Basophils % 0.1 % (0.0-0.8); Hematocrit 34.8 VOL% (35.7-47.0); Hemoglobin 10.6 GM/DL (12.0-16.0); Immature Granulocytes % 0.7 %; Immature Granulocytes Absolute 0.11 #; Lymphocytes # 1.8 10*3/uL (1.4-4.0); Lymphocytes % 11.1 % (21.3-54.2); Mean Corpuscular HGB Conc 30.5 GM/DL (32-36); Mean Corpuscular Volume 90.6 FL (87-102); Mean Platelet Volume 13.4 FL (9.6-12.0); Monocytes % 3.9 % (1.7-12.7); NRBC # 0.05 10*3/uL; Neutrophils % 84.2 % (38.7-73.9); Platelet Count 228 T/CUMM (130-400); Red Blood Count 3.84 MC/CUMM (3.8-5.5); Red Cell Distribution Width 16.8 % (9.3-17.3); White Blood Count 16.3 T/CUMM (4-12)
[2020-10-01 08:12] LABS: Alanine Aminotransferase 950 U/L (13-56); Albumin 2.1 G/DL (3.4-5.0); Alkaline Phosphatase 161 U/L (45-117); Aspartate Amino Transferase 1107 U/L (0-37); Blood Urea Nitrogen 135 MG/DL (7-18); Calcium 10.2 MG/DL (8.5-10.1); Carbon Dioxide 30 MMOL/L (21-32); Estimated Glom Filtration Rate 18 ML/MIN; Glucose 300 MG/DL (74-106); Lymphocytes 11 % (20-55); Osmolality,Calculated 344.6 MOS/KG (273-304); Platelet Estimate Adequate; Potassium 4.7 MMOL/L (3.5-5.1); Segmented Neutrophils 82 % (50-85); Sodium 146 MMOL/L (136-145); Total Cells Counted 100; Total Protein 7.3 G/DL (5.0-7.5)
[2020-10-01 08:13] LABS: Hypochromasia 1+; Microcytosis Slight
[2020-10-01 08:15] LABS: Amorphous Crystals,Urine Occasional /HPF (Few); Bilirubin,Urine Negative (Negative); Blood, Urine Negative (Negative); Glucose,Urine (UA) Negative (Negative); Ketones,Urine 5 mg/dL (Negative); Nitrite,Urine Negative (Negative); Protein,Urine 30 MG/DL; Squamous Epithelial Cell,Urine Many /HPF (0-10); Urine Appearance CLOUDY (Clear); Urine Color Amber (Yellow); WBC,Urine 5 /HPF (0-6)
[2020-10-01] MEDS ORDERED: PIPERACILLIN/TAZOBACTAM 3,375 MG in SODIUM CHLORIDE 0.9% 100 ML IV STA (08:17)
[2020-10-01] MEDS ORDERED: INSULIN LISPRO 100 UNIT/ML SUBCUT STA (08:30)
[2020-10-01 08:32] LABS: INR 1.1; PT Patient Result 11.5 SECS (9.8-11.9); Partial Thromboplastin Time 25.3 SECS (23.9-33.8)
[2020-10-01 09:24] LABS: Hepatitis B Core IgM Quant < 0.05 Index; Hepatitis B Surface Ag Quant < 0.10 Index; Hepatitis B Surface Ag Result Non-Reactive (NonReactive); Hepatitis C Virus Ab Quant 0.22 Index; Hepatitis C Virus Ab Result Non-Reactive (NonReactive)
[2020-10-01] MEDS ORDERED: ALBUTEROL 2.5 MG/3 ML NEB RESP TX PRN (09:30)
[2020-10-01] MEDS ORDERED: ONDANSETRON 4 MG/2 ML VIAL IV PRN (09:30)
[2020-10-01 09:48] LABS: Barbiturates Screen,Urine Negative (Negative); Benzodiazepines Screen,Urine Negative (Negative); Cannabinoid Screen,Urine Negative (Negative); Opiate Screen,Urine Negative (Negative); Phencyclidine Screen,Urine Negative (Negative)
[2020-10-01] MEDS ORDERED: PANTOPRAZOLE 40 MG TABLET PO SCH (10:00)
[2020-10-01] MEDS: PHENYLEPHRINE DRIP 40 MG/250 ML PREMIX IV SCH ×3 (10:09→19:30)
[2020-10-01] MEDS: SODIUM CHLORIDE 0.9% 1,000 ML IV SCH (10:09)
[2020-10-01] MEDS ORDERED: SODIUM CHLORIDE 0.9% 1,000 ML IV ONE (13:00)
[2020-10-01] MEDS: cefTRIAXone 1,000 MG in SYRINGE 1 EACH IV SCH (13:34)
[2020-10-01] MEDS: AZITHROMYCIN INJ 500 MG in SODIUM CHLORIDE 0.9% 250 ML IV SCH (13:35)
[2020-10-01] MEDS: metroNIDAZOLE INJ 500 MG in PREMIX 1 EACH IV SCH ×2 (15:41→22:00)
[2020-10-01 17:06] LABS: Amorphous Crystals,Urine Occasional /HPF (Few); Bilirubin,Urine Negative (Negative); Blood, Urine Small mg/dL (Negative); Glucose,Urine (UA) Negative (Negative); Ketones,Urine Negative (Negative); Nitrite,Urine Negative (Negative); Protein,Urine 30 MG/DL; RBC,Urine 2 /HPF (0-4); Squamous Epithelial Cell,Urine Occasional /HPF (0-10); Urine Appearance CLOUDY (Clear); Urine Color Amber (Yellow); Urine Specific Gravity 1.016 (1.001-1.035)
[2020-10-01] MEDS: APIXABAN 5 MG TABLET PO SCH (22:00)
[2020-10-01] MEDS: MEMANTINE 10 MG TABLET PO SCH (22:00)
[2020-10-02] MEDS: SODIUM CHLORIDE 0.9% 1,000 ML IV SCH ×2 (00:08→06:05)
[2020-10-02] MEDS: PHENYLEPHRINE DRIP 40 MG/250 ML PREMIX IV SCH ×2 (00:15→16:27)
[2020-10-02] MEDS: metroNIDAZOLE INJ 500 MG in PREMIX 1 EACH IV SCH ×4 (04:00→20:03)
[2020-10-02 04:58] LABS: Basophils # 0.1 10*3/uL (0.0-0.2); Basophils % 0.2 % (0.0-0.8); Hematocrit 31.6 VOL% (35.7-47.0); Hemoglobin 9.3 GM/DL (12.0-16.0); Immature Granulocytes % 1.6 %; Immature Granulocytes Absolute 0.36 #; Lymphocytes # 1.8 10*3/uL (1.4-4.0); Lymphocytes % 7.8 % (21.3-54.2); Mean Corpuscular HGB Conc 29.4 GM/DL (32-36); Mean Corpuscular Volume 92.1 FL (87-102); Mean Platelet Volume 13.2 FL (9.6-12.0); Monocytes % 2.2 % (1.7-12.7); NRBC # 0.08 10*3/uL; Neutrophils % 88.2 % (38.7-73.9); Platelet Count 228 T/CUMM (130-400); Red Blood Count 3.43 MC/CUMM (3.8-5.5); Red Cell Distribution Width 17.1 % (9.3-17.3)
[2020-10-02 04:59] LABS: White Blood Count 23.1 T/CUMM (4-12)
[2020-10-02 05:13] LABS: Albumin 1.6 G/DL (3.4-5.0); Bilirubin,Total 0.7 MG/DL (0.2-1.0); Osmolality,Calculated 342.3 MOS/KG (273-304); Potassium 3.2 MMOL/L (3.5-5.1); Total Protein 6.1 G/DL (5.0-7.5)
[2020-10-02 06:18] LABS: Band Neutrophils 4 % (0-10); Lymphocytes 8 % (20-55); Metamyelocytes 10 %; Myelocytes 3 %; Segmented Neutrophils 74 % (50-85); Total Cells Counted 100
[2020-10-02 06:23] LABS: Hypochromasia 2+; Platelet Estimate Normal; Polychromasia Few; Target Cells Few
[2020-10-02] MEDS: PANTOPRAZOLE 40 MG VIAL IV SCH (08:53)
[2020-10-02] MEDS: MEMANTINE 10 MG TABLET PO SCH ×2 (08:53→20:01)
[2020-10-02] MEDS: APIXABAN 5 MG TABLET PO SCH ×2 (08:53→20:01)
[2020-10-02] MEDS: LEVOTHYROXINE 25 MCG TABLET PO SCH (08:53)
[2020-10-02] MEDS: OXcarbazepine 300 MG TABLET PO SCH (08:53)
[2020-10-02] MEDS: CALCIUM (CARBONATE)/VITAMIN D 600 MG-400 UNIT TABLET PO SCH (08:54)
[2020-10-02] MEDS: POTASSIUM CHLORIDE 20 MEQ/15 ML UDCUP PER TUBE SCH ×3 (08:57→17:30)
[2020-10-02] MEDS: ALBUMIN 25% 25 GM in PREMIX 1 EACH IV SCH ×2 (08:57→17:29)
[2020-10-02] MEDS ORDERED: MAGNESIUM OXIDE 400 MG TABLET PO SCH (09:00)
[2020-10-02] MEDS: cefTRIAXone 1,000 MG in SYRINGE 1 EACH IV SCH (11:57)
[2020-10-02] MEDS: AZITHROMYCIN INJ 500 MG in SODIUM CHLORIDE 0.9% 250 ML IV SCH (11:57)
[2020-10-02] MEDS ORDERED: DEXTROSE 50% 25 GM/50 ML VIAL IV PRN (12:19)
[2020-10-02] MEDS ORDERED: GLUCAGON 1 MG VIAL IM PRN (12:19)
[2020-10-02] MEDS: MEROPENEM 500 MG in SODIUM CHLORIDE 0.9% 100 ML IV SCH ×2 (15:36→22:19)
[2020-10-02] MEDS: INSULIN REGULAR 100 UNIT/ML SUBCUT SCH (17:24)
[2020-10-02] MEDS ORDERED: DIGOXIN 0.5 MG/2 ML AMP IV ONE ×2 (18:39→19:40)
[2020-10-03] MEDS: INSULIN REGULAR 100 UNIT/ML SUBCUT SCH ×4 (00:05→18:14)
[2020-10-03] MEDS: ALBUMIN 25% 25 GM in PREMIX 1 EACH IV SCH ×3 (00:05→16:19)
[2020-10-03] MEDS: metroNIDAZOLE INJ 500 MG in PREMIX 1 EACH IV SCH ×4 (03:11→20:26)
[2020-10-03 04:20] LABS: ABG Base Excess 0.2 MMOL/L (-2.5-2.5); ABG HCO3 24.6 MMOL/L (20-26); ABG Oxygen Saturation 98.3 % (95-100); ABG PCO2 42.8 MM HG (35-48); ABG PH 7.381 (7.35-7.45); ABG TCO2 23.5 MMOL/L (23-27); Allen Test Positive; Pt O2 Delivery Device Venturi Mask
[2020-10-03 04:31] LABS: Basophils # 0.1 10*3/uL (0.0-0.2); Basophils % 0.3 % (0.0-0.8); Hematocrit 26.3 VOL% (35.7-47.0); Hemoglobin 8.1 GM/DL (12.0-16.0); Immature Granulocytes % 2.3 %; Immature Granulocytes Absolute 0.46 #; Lymphocytes # 0.9 10*3/uL (1.4-4.0); Lymphocytes % 4.7 % (21.3-54.2); Mean Corpuscular HGB Conc 30.8 GM/DL (32-36); Mean Corpuscular Volume 90.7 FL (87-102); Mean Platelet Volume 14.1 FL (9.6-12.0); Monocytes % 2.2 % (1.7-12.7); Neutrophils % 90.5 % (38.7-73.9); Platelet Count 196 T/CUMM (130-400); Red Cell Distribution Width 16.7 % (9.3-17.3); White Blood Count 20.2 T/CUMM (4-12)
[2020-10-03 04:50] LABS: Band Neutrophils 4 % (0-10); Lymphocytes 4 % (20-55); Platelet Estimate Normal; Segmented Neutrophils 91 % (50-85); Total Cells Counted 100
[2020-10-03 04:51] LABS: Hypochromasia Slight
[2020-10-03 05:27] LABS: Albumin 2.5 G/DL (3.4-5.0); Bilirubin,Total 1.2 MG/DL (0.2-1.0); Calcium 9.5 MG/DL (8.5-10.1); Osmolality,Calculated 350.9 MOS/KG (273-304); Potassium 3.2 MMOL/L (3.5-5.1)
[2020-10-03] MEDS: MEROPENEM 500 MG in SODIUM CHLORIDE 0.9% 100 ML IV SCH ×3 (06:03→21:33)
[2020-10-03] MEDS: POTASSIUM CHLORIDE 20 MEQ/15 ML UDCUP PO SCH ×3 (08:49→16:19)
[2020-10-03] MEDS: CALCIUM (CARBONATE)/VITAMIN D 600 MG-400 UNIT TABLET PO SCH (08:49)
[2020-10-03] MEDS: traMADol 50 MG TABLET PO PRN ×2 (08:50→20:18)
[2020-10-03] MEDS: APIXABAN 5 MG TABLET PO SCH ×2 (08:50→20:17)
[2020-10-03] MEDS: LEVOTHYROXINE 25 MCG TABLET PO SCH (08:50)
[2020-10-03] MEDS: MEMANTINE 10 MG TABLET PO SCH ×2 (08:51→20:17)
[2020-10-03] MEDS: PANTOPRAZOLE 40 MG VIAL IV SCH (08:54)
[2020-10-03] MEDS: OXcarbazepine 300 MG TABLET PO SCH (08:55)
[2020-10-03] MEDS: PHENYLEPHRINE DRIP 40 MG/250 ML PREMIX IV SCH (09:48)
[2020-10-03] MEDS ORDERED: INSULIN REGULAR 100 UNIT/ML SUBCUT SCH (11:30)
[2020-10-03] MEDS: AZITHROMYCIN INJ 500 MG in SODIUM CHLORIDE 0.9% 250 ML IV SCH (11:33)
[2020-10-03] MEDS: ALBUTEROL/IPRATROPIUM 3 ML NEB RESP TX SCH ×2 (13:34→20:11)
[2020-10-03] MEDS: DIGOXIN 0.125 MG TABLET PO SCH (13:34)
[2020-10-04] MEDS: INSULIN REGULAR 100 UNIT/ML SUBCUT SCH ×4 (00:05→17:20)
[2020-10-04] MEDS: ALBUMIN 25% 25 GM in PREMIX 1 EACH IV SCH (00:10)
[2020-10-04] MEDS: ALBUTEROL/IPRATROPIUM 3 ML NEB RESP TX SCH ×4 (00:52→19:41)
[2020-10-04] MEDS: metroNIDAZOLE INJ 500 MG in PREMIX 1 EACH IV SCH ×4 (02:25→20:05)
[2020-10-04 04:40] LABS: Basophils % 0.1 % (0.0-0.8); Eosinophils % 0.1 % (0.00-10.9); Hematocrit 23.7 VOL% (35.7-47.0); Hemoglobin 7.2 GM/DL (12.0-16.0); Immature Granulocytes % 1.9 %; Immature Granulocytes Absolute 0.31 #; Lymphocytes # 1.3 10*3/uL (1.4-4.0); Lymphocytes % 8.2 % (21.3-54.2); Mean Corpuscular HGB Conc 30.4 GM/DL (32-36); Mean Corpuscular Volume 91.5 FL (87-102); Mean Platelet Volume 14.4 FL (9.6-12.0); Monocytes % 1.7 % (1.7-12.7); NRBC # 0.11 10*3/uL; Platelet Count 207 T/CUMM (130-400); Red Blood Count 2.59 MC/CUMM (3.8-5.5); Red Cell Distribution Width 16.5 % (9.3-17.3); White Blood Count 16.2 T/CUMM (4-12)
[2020-10-04 05:02] LABS: Albumin 2.9 G/DL (3.4-5.0); Bilirubin,Total 0.8 MG/DL (0.2-1.0); Calcium 9.7 MG/DL (8.5-10.1); Potassium 3.8 MMOL/L (3.5-5.1); Total Protein 5.8 G/DL (5.0-7.5)
[2020-10-04 05:19] LABS: Band Neutrophils 2 % (0-10); Hypochromasia 2+; Lymphocytes 7 % (20-55); Microcytosis 1+; Nucleated Red Blood Cells 1 (0-5); Platelet Estimate Adequate; Segmented Neutrophils 91 % (50-85); Total Cells Counted 100
[2020-10-04] MEDS: MEROPENEM 500 MG in SODIUM CHLORIDE 0.9% 100 ML IV SCH ×3 (06:05→21:30)
[2020-10-04] MEDS: traMADol 50 MG TABLET PO PRN ×2 (06:10→20:06)
[2020-10-04] MEDS: LEVOTHYROXINE 25 MCG TABLET PO SCH (08:20)
[2020-10-04] MEDS: APIXABAN 5 MG TABLET PO SCH ×2 (08:20→20:05)
[2020-10-04] MEDS: MEMANTINE 10 MG TABLET PO SCH ×2 (08:20→20:05)
[2020-10-04] MEDS: OXcarbazepine 300 MG TABLET PO SCH (08:20)
[2020-10-04] MEDS: CALCIUM (CARBONATE)/VITAMIN D 600 MG-400 UNIT TABLET PO SCH (08:20)
[2020-10-04] MEDS: PANTOPRAZOLE 40 MG VIAL IV SCH (08:21)
[2020-10-04] MEDS ORDERED: SODIUM CHLORIDE 0.9% 1,000 ML IV PRN (09:21)
[2020-10-04] MEDS: PHENYLEPHRINE DRIP 40 MG/250 ML PREMIX IV SCH (13:55)
[2020-10-04] MEDS: AZITHROMYCIN INJ 500 MG in SODIUM CHLORIDE 0.9% 250 ML IV SCH (14:02)
[2020-10-04] MEDS: DIGOXIN 0.125 MG TABLET PO SCH (14:02)
[2020-10-04] MEDS ORDERED: POTASSIUM PHOSPHATE 30 MMOL in SODIUM CHLORIDE 0.9% 250 ML IV ONE ×2 (14:02→21:00)
[2020-10-04] MEDS ORDERED: hydrALAZINE 20 MG/1 ML VIAL IV PRN (16:51)
[2020-10-04] MEDS: LOSARTAN 50 MG TABLET PO SCH (17:11)
[2020-10-05] MEDS: MORPHINE 4 MG/1 ML VIAL IV PRN (00:26)
[2020-10-05] MEDS: INSULIN REGULAR 100 UNIT/ML SUBCUT SCH ×4 (00:33→18:12)
[2020-10-05] MEDS: ALBUTEROL/IPRATROPIUM 3 ML NEB RESP TX SCH ×4 (01:55→19:34)
[2020-10-05] MEDS: metroNIDAZOLE INJ 500 MG in PREMIX 1 EACH IV SCH ×2 (03:02→08:45)
[2020-10-05 04:54] LABS: Basophils # 0.1 10*3/uL (0.0-0.2); Basophils % 0.6 % (0.0-0.8); Eosinophils # 0.1 10*3/uL (0.0-0.87); Eosinophils % 0.8 % (0.00-10.9); Hematocrit 31.4 VOL% (35.7-47.0); Immature Granulocytes % 5.1 %; Immature Granulocytes Absolute 0.79 #; Lymphocytes # 1.9 10*3/uL (1.4-4.0); Lymphocytes % 12.5 % (21.3-54.2); Mean Corpuscular HGB Conc 31.8 GM/DL (32-36); Mean Corpuscular Volume 88.2 FL (87-102); Mean Platelet Volume 13.4 FL (9.6-12.0); Monocytes % 2.7 % (1.7-12.7); NRBC # 0.18 10*3/uL; Neutrophils % 78.3 % (38.7-73.9); Platelet Count 210 T/CUMM (130-400); Red Blood Count 3.56 MC/CUMM (3.8-5.5); Red Cell Distribution Width 16.1 % (9.3-17.3); White Blood Count 15.5 T/CUMM (4-12)
[2020-10-05 05:12] LABS: Band Neutrophils 1 % (0-10); Eosinophils 3 % (0-10); Hypochromasia 1+; Lymphocytes 12 % (20-55); Microcytosis 1+; Nucleated Red Blood Cells 1 (0-5); Ovalocytes Slight; Platelet Estimate Adequate; Segmented Neutrophils 83 % (50-85); Total Cells Counted 100
[2020-10-05 05:15] LABS: Albumin 2.5 G/DL (3.4-5.0); Bilirubin,Total 0.8 MG/DL (0.2-1.0); Calcium 9.7 MG/DL (8.5-10.1); Osmolality,Calculated 329.4 MOS/KG (273-304); Potassium 4.3 MMOL/L (3.5-5.1); Total Protein 5.8 G/DL (5.0-7.5)
[2020-10-05] MEDS: MEROPENEM 500 MG in SODIUM CHLORIDE 0.9% 100 ML IV SCH ×2 (06:14→14:36)
[2020-10-05] MEDS: APIXABAN 5 MG TABLET PO SCH (08:44)
[2020-10-05] MEDS: LOSARTAN 50 MG TABLET PO SCH (08:45)
[2020-10-05] MEDS: LEVOTHYROXINE 25 MCG TABLET PO SCH (08:45)
[2020-10-05] MEDS: MEMANTINE 10 MG TABLET PO SCH ×2 (08:45→22:05)
[2020-10-05] MEDS: CALCIUM (CARBONATE)/VITAMIN D 600 MG-400 UNIT TABLET PO SCH (08:45)
[2020-10-05] MEDS: OXcarbazepine 300 MG TABLET PO SCH (08:45)
[2020-10-05] MEDS: PANTOPRAZOLE 40 MG VIAL IV SCH (08:45)
[2020-10-05] MEDS: PHENYLEPHRINE DRIP 40 MG/250 ML PREMIX IV SCH (13:38)
[2020-10-05] MEDS: AZITHROMYCIN INJ 500 MG in SODIUM CHLORIDE 0.9% 250 ML IV SCH (13:39)
[2020-10-05] MEDS: DIGOXIN 0.125 MG TABLET PO SCH (14:36)
[2020-10-06] MEDS: MEROPENEM 500 MG in SODIUM CHLORIDE 0.9% 100 ML IV SCH ×4 (00:08→23:47)
[2020-10-06] MEDS: ALBUTEROL/IPRATROPIUM 3 ML NEB RESP TX SCH ×4 (01:18→19:53)
[2020-10-06] MEDS: INSULIN REGULAR 100 UNIT/ML SUBCUT SCH ×5 (02:42→23:52)
[2020-10-06 06:03] LABS: Basophils # 0.1 10*3/uL (0.0-0.2); Basophils % 0.3 % (0.0-0.8); Eosinophils # 0.1 10*3/uL (0.0-0.87); Eosinophils % 0.6 % (0.00-10.9); Hematocrit 33.8 VOL% (35.7-47.0); Hemoglobin 10.6 GM/DL (12.0-16.0); Immature Granulocytes % 5.5 %; Immature Granulocytes Absolute 0.86 #; Lymphocytes # 2.1 10*3/uL (1.4-4.0); Lymphocytes % 13.4 % (21.3-54.2); Mean Corpuscular HGB Conc 31.4 GM/DL (32-36); Mean Corpuscular Volume 89.9 FL (87-102); Mean Platelet Volume 14.1 FL (9.6-12.0); NRBC # 0.15 10*3/uL; Neutrophils % 76.2 % (38.7-73.9); Red Blood Count 3.76 MC/CUMM (3.8-5.5); Red Cell Distribution Width 16.6 % (9.3-17.3); White Blood Count 15.7 T/CUMM (4-12)
[2020-10-06 06:14] LABS: Platelet Count 264 T/CUMM (130-400)
[2020-10-06 06:19] LABS: Albumin 2.4 G/DL (3.4-5.0); Bilirubin,Total 0.6 MG/DL (0.2-1.0); Calcium 10.2 MG/DL (8.5-10.1); Osmolality,Calculated 322.4 MOS/KG (273-304); Potassium 3.8 MMOL/L (3.5-5.1)
[2020-10-06 06:22] LABS: Band Neutrophils 1 % (0-10); Hypochromasia 1+; Lymphocytes 10 % (20-55); Microcytosis 1+; Nucleated Red Blood Cells 4 (0-5); Platelet Estimate Adequate; Segmented Neutrophils 85 % (50-85); Total Cells Counted 100
[2020-10-06] MEDS: PANTOPRAZOLE 40 MG VIAL IV SCH (08:46)
[2020-10-06] MEDS: CALCIUM (CARBONATE)/VITAMIN D 600 MG-400 UNIT TABLET PO SCH (08:46)
[2020-10-06] MEDS: MEMANTINE 10 MG TABLET PO SCH ×2 (08:46→21:14)
[2020-10-06] MEDS: LOSARTAN 50 MG TABLET PO SCH (08:46)
[2020-10-06] MEDS: LEVOTHYROXINE 25 MCG TABLET PO SCH (08:46)
[2020-10-06] MEDS: OXcarbazepine 300 MG TABLET PO SCH (08:49)
[2020-10-06] MEDS ORDERED: ACETAMINOPHEN 325 MG TABLET PO PRN (13:04)
[2020-10-06] MEDS: DIGOXIN 0.125 MG TABLET PO SCH (13:16)
[2020-10-06] MEDS: MORPHINE 4 MG/1 ML VIAL IV PRN ×2 (15:05→21:11)
[2020-10-06] MEDS: ALBUTEROL/IPRATROPIUM 3 ML NEB RESP TX PRN (17:45)
[2020-10-07] MEDS: ALBUTEROL/IPRATROPIUM 3 ML NEB RESP TX SCH ×2 (00:26→08:00)
[2020-10-07] MEDS: traMADol 50 MG TABLET PO PRN (01:42)
[2020-10-07] MEDS: MEROPENEM 500 MG in SODIUM CHLORIDE 0.9% 100 ML IV SCH ×3 (05:42→23:19)
[2020-10-07] MEDS: MORPHINE 4 MG/1 ML VIAL IV PRN ×3 (05:42→21:54)
[2020-10-07] MEDS: INSULIN REGULAR 100 UNIT/ML SUBCUT SCH ×4 (05:42→23:20)
[2020-10-07 05:53] LABS: Osmolality,Calculated 317.6 MOS/KG (273-304); Potassium 3.5 MMOL/L (3.5-5.1)
[2020-10-07] MEDS: LOSARTAN 50 MG TABLET PO SCH (09:26)
[2020-10-07] MEDS: MEMANTINE 10 MG TABLET PO SCH ×2 (09:26→21:52)
[2020-10-07] MEDS: OXcarbazepine 300 MG TABLET PO SCH (09:26)
[2020-10-07] MEDS: CALCIUM (CARBONATE)/VITAMIN D 600 MG-400 UNIT TABLET PO SCH (09:26)
[2020-10-07] MEDS: LEVOTHYROXINE 25 MCG TABLET PO SCH (09:26)
[2020-10-07] MEDS: PANTOPRAZOLE 40 MG VIAL IV SCH (09:27)
[2020-10-07] MEDS: DIGOXIN 0.125 MG TABLET PO SCH (12:02)
[2020-10-07] MEDS: ALBUTEROL/IPRATROPIUM 3 ML NEB RESP TX PRN (13:22)
[2020-10-07 17:15] LABS: Osmolality,Calculated 306.3 MOS/KG (273-304); Potassium 3.6 MMOL/L (3.5-5.1)
[2020-10-08] MEDS: traMADol 50 MG TABLET PO PRN ×2 (01:43→09:25)
[2020-10-08] MEDS: INSULIN REGULAR 100 UNIT/ML SUBCUT SCH ×3 (05:26→17:24)
[2020-10-08] MEDS: MEROPENEM 500 MG in SODIUM CHLORIDE 0.9% 100 ML IV SCH (06:02)
[2020-10-08 06:41] LABS: Calcium 9.1 MG/DL (8.5-10.1); Osmolality,Calculated 294.8 MOS/KG (273-304); Potassium 3.3 MMOL/L (3.5-5.1)
[2020-10-08] MEDS: ALBUTEROL/IPRATROPIUM 3 ML NEB RESP TX PRN ×3 (07:42→19:34)
[2020-10-08] MEDS: LOSARTAN 50 MG TABLET PO SCH (09:22)
[2020-10-08] MEDS: LEVOTHYROXINE 25 MCG TABLET PO SCH (09:22)
[2020-10-08] MEDS: PANTOPRAZOLE 40 MG VIAL IV SCH (09:22)
[2020-10-08] MEDS: CALCIUM (CARBONATE)/VITAMIN D 600 MG-400 UNIT TABLET PO SCH (09:22)
[2020-10-08] MEDS: MEMANTINE 10 MG TABLET PO SCH ×2 (09:22→21:21)
[2020-10-08] MEDS: OXcarbazepine 300 MG TABLET PO SCH (09:22)
[2020-10-08] MEDS ORDERED: POTASSIUM CHLORIDE 20 MEQ PACK PEG ONE (12:00)
[2020-10-08] MEDS: DIGOXIN 0.125 MG TABLET PO SCH (12:39)
[2020-10-08] MEDS: metroNIDAZOLE 500 MG TABLET PEG SCH ×2 (15:53→21:21)
[2020-10-08] MEDS: HYDROcod/ACETAMIN 7.5-325 MG/15 ML UDCUP PEG SCH ×2 (15:54→21:21)
[2020-10-08] MEDS: CEFDINIR 25 MG/ML 100 ML/BOTTLE PEG SCH (21:22)
[2020-10-09] MEDS: MORPHINE 4 MG/1 ML VIAL IV PRN (02:44)
[2020-10-09] MEDS: INSULIN REGULAR 100 UNIT/ML SUBCUT SCH ×3 (03:44→13:22)
[2020-10-09] MEDS: HYDROcod/ACETAMIN 7.5-325 MG/15 ML UDCUP PEG SCH ×2 (04:22→10:53)
[2020-10-09] MEDS: ALBUTEROL/IPRATROPIUM 3 ML NEB RESP TX PRN ×2 (07:23→13:15)
[2020-10-09] MEDS ORDERED: OMEPRAZOLE ODT 20 MG TABLET PEG SCH (09:00)
[2020-10-09] MEDS: CALCIUM (CARBONATE)/VITAMIN D 600 MG-400 UNIT TABLET PO SCH (09:20)
[2020-10-09] MEDS: OXcarbazepine 300 MG TABLET PO SCH (09:20)
[2020-10-09] MEDS: metroNIDAZOLE 500 MG TABLET PEG SCH (09:20)
[2020-10-09] MEDS: LEVOTHYROXINE 25 MCG TABLET PO SCH (09:20)
[2020-10-09] MEDS: LOSARTAN 50 MG TABLET PO SCH (09:21)
[2020-10-09] MEDS: MEMANTINE 10 MG TABLET PO SCH (09:22)
[2020-10-09] MEDS: CEFDINIR 25 MG/ML 100 ML/BOTTLE PEG SCH (09:27)
[2020-10-09 11:25] VITALS: BP 153/74
== END 2020-10-09 13:26 | DRG 871 ==
LOC: EDUNIT# → EDBD → N.ED 07:13 → SUATTDRO 09:57 → N.EDINP 09:57 → N.CC 10:14 → N.5E 10-05 16:52
PROVIDERS: ADMIT Internal Medicine; ATTEND Emergency Medicine